=== PATIENT | male | born 1945 | race Caucasian/White ===

== ENCOUNTER 2017-06-24 09:13 | Outpatient (CLI) | payer OTHER ==
--- NOTE | 2017-06-24 11:01 | CT Report ---
CT SINUSES WITHOUT CONTRAST: 06/24/2017 CLINICAL INDICATION: Sinusitis. TECHNIQUE: Axial CT images of the paranasal sinuses were obtained without intravenous contrast, foll owing which sagittal and coronal reconstructions were performed. No previous CT is available for comparison. FINDINGS: There is near complete opacification of the left maxillary sinus, with bony reactive gallagher es, compatible with chronic sinusitis. The left osteomeatal unit is occluded by soft tissue, and the re is patchy opacification of left ethmoid air cells. There is mild mucosal thickening in the right maxillary sinus. The right osteomeatal unit is patent. There is rightward deviation of the septum. There is mild mucosal thickening in the inferior aspect of the frontal sinuses and sphenoid sinus. The visualized intraorbital contents are unremarkable. An exostosis is noted arising from the left s uperior orbital rim. IMPRESSION: CHRONIC SINUSITIS, MOST SEVERE IN THE LEFT MAXILLARY SINUS. In accordance with CT protocol optimization, one or more of the following dose reduction techniques w ere utilized for this exam: automated exposure control, adjustment of mA and/or KV based on patient size, or use of iterative reconstructive technique. JOB #: [id number] EXT JOB #:[id number]
== END 2017-06-24 09:14 | disposition home or self-care (01) ==
LOC: DI 09:13
PROVIDERS: ATTEND Hospitalist
DX: J32.9 Chronic sinusitis, unspecified (principal)
CPT/HCPCS: 70486

== ENCOUNTER 2017-11-14 07:09 | Observation (INO) | payer OTHER ==
[2017-11-14] MEDS ORDERED: LACTATED RINGERS 1,000 ML IV ONE ×2 (07:45→08:10)
[2017-11-14] MEDS ORDERED: MIDAZOLAM 2 MG/2 ML VIAL IVP ONE (07:55)
[2017-11-14] MEDS ORDERED: fentaNYL 100 MCG/2 ML VIAL IVP ONE (07:55)
[2017-11-14] MEDS ORDERED: diltiaZEM INJ 5 MG/ML VIAL ONE (09:13)
[2017-11-14 09:17] LABS: BASOPHILS # (AUTO) 0.1 10^3/uL (0.0-0.1); BASOPHILS % (AUTO) 0.6 %; EOSINOPHILS # (AUTO) 0.1 10^3/uL (0.0-0.7); EOSINOPHILS % (AUTO) 0.9 %; HGB - HEMOGLOBIN 13.4 g/dL (14.0-18.0); LYMPHOCYTES # (AUTO) 1.8 10^3/uL (1.5-3.5); LYMPHOCYTES % (AUTO) 20.6 %; MEAN CORPUSCULAR HEMOGLOBIN 31.8 pg (27.0-31.0); MEAN CORPUSCULAR VOLUME 90.8 fL (80.0-94.0); MEAN PLATELET VOLUME 8.1 fL (7.4-11.4); MONOCYTES # (AUTO) 0.4 10^3/uL (0.0-1.0); MONOCYTES % (AUTO) 4.4 %; NEUTROPHILS # (AUTO) 6.3 10^3/uL (1.5-6.6); NEUTROPHILS % (AUTO) 73.5 %; PLT - PLATELET COUNT 210 10^3/uL (130-450); RED BLOOD COUNT 4.22 10^6/uL (4.70-6.10); RED CELL DISTRIBUTION WIDTH 13.1 % (12.0-15.0); WHITE BLOOD COUNT 8.6 x10^3/uL (4.8-10.8)
[2017-11-14 09:26] LABS: CALCIUM 8.9 mg/dL (8.5-10.3); CREATININE 0.9 mg/dL (0.6-1.2)
[2017-11-14] MEDS ORDERED: PROCAINAMIDE 1,000 MG in SODIUM CHLORIDE 0.9% 240 ML IV SCH (10:00)
[2017-11-14] MEDS ORDERED: MORPHINE 2 MG/ML CARPUJECT IVP PRN (10:10)
[2017-11-14] MEDS ORDERED: ONDANSETRON ODT 4 MG TABLET TL PRN (10:10)
[2017-11-14] MEDS ORDERED: ACETAMINOPHEN 325 MG TABLET PO PRN (10:10)
[2017-11-14] MEDS ORDERED: ONDANSETRON 4 MG/2 ML VIAL IVP PRN (10:10)
[2017-11-14] MEDS ORDERED: HYDROcod/ACETAM 5/325 MG TABLET PO PRN (10:10)
[2017-11-14] MEDS ORDERED: SODIUM CHLORIDE FLUSH 0.9% 10 ML SYRINGE IVP PRN (10:10)
[2017-11-14] MEDS ORDERED: PROCHLORPERAZINE 10 MG/2 ML VIAL IVP PRN (10:10)
[2017-11-14] MEDS ORDERED: MAG HYDROX/AL HYDROX/SIMETH 30 ML UDC PO ONE (10:15)
[2017-11-14] MEDS ORDERED: PANTOPRAZOLE 40 MG VIAL IVP SCH (11:00)
[2017-11-14] MEDS ORDERED: SODIUM CHLORIDE 0.9% 1,000 ML IV SCH (11:00)
[2017-11-14] MEDS ORDERED: ENOXAPARIN 40 MG/0.4 ML SYRINGE SUBQ SCH (11:00)
[2017-11-14 11:26] LABS: HB2 TOTAL 14.4 g/dL; HEMOGLOBIN A1C 0.85 g/dL; HEMOGLOBIN A1C % 7.6 % (4.6-6.2)
--- NOTE | 2017-11-14 11:58 | HISTORY & PHYSICAL EXAMINATION ---
DATE OF SERVICE: Physician: Ml Garcia MD PRIMARY CARE PROVIDER: Jewels Aguero at [facility] ADMITTING PROVIDER: Ml Garcia MD CHIEF COMPLAINT: New onset atrial fibrillation as he was being sedated for an elective colonoscopy. HISTORY OF PRESENT ILLNESS: The patient has no past medical history with regards to cardiac status. He says that over the years, he has gotten less and less active. He loves to eat and he is way too overweight. He is a diabetic, hypertensive, hyperlipidemic, and an ex-smoker. His does note that he gets a little bit more short of breath coming up the stairs, and he seems more tired and falls asleep in the middle of the day. They also wonder if he has obstructive sleep apnea. This is his sixth colonoscopy. He has a history of tubular adenomas. Last one was done in 2011. He had an uneventful precolonoscopy prep. He came here this morning without any new problems. He specifically denies chest pain, palpitations, shortness of breath , pedal edema, or orthopnea. Right after he received the Versed and fentanyl, but before he actually had insertion of the scope, he was noted to have some tachycardia on the rhythm monitor. Close evaluation showed him to have atrial fibrillation in the 140s up to the 160s. Blood pressure was maintained. The procedure was aborted, and the patient was transferred to the outpatient suite. Dr. Estephania Bautista asked me to come see the patient in consult. After evaluating the patient and being with him in the outpatient suite for about an hour and a half, I have decided to go ahead and place him in observation. While he was in the outpatient suite, he received diltiazem 10 mg IV push and he did drop his heart rate to the 90s, and he has been started on a procainamide drip of which he has had half of it. I was attempting to use the [place] protocol to see if I could get him discharged to home from the outpatient suite. However, the patient has had some chest pain with this. He says it is substernal. Seems like indigestion and all he needs to do is belch and he would feel better, but it is not happening. It is nonradiating and he does have some diaphoresis. No jaw pain, no arm pain. Not short of breath. Not nauseated. The pain resolved on its own. As stated, he did already receive diltiazem IV push, and he is in the middle of a procainamide drip and his systolic pressure is 110. PAST MEDICAL HISTORY 1. Hypertension. 2. Hyperlipidemia. 3. Uncontrolled type 2 diabetes mellitus, with complications of neuropathy, not on long-term insulin. 4. Reflux disease. 5. History of tubular adenomas, status post 5 colonoscopies with today's colonoscopy aborted. ALLERGIES: NO KNOWN DRUG ALLERGIES. MEDICATIONS 1. Glipizide 5 mg once a day. 2. Lovastatin 40 mg in the evening. 3. Metformin 1000 mg b.i.d. 4. Lisinopril 20 mg p.o. daily. SOCIAL HISTORY: He was born in [place]. He is a local boy and he is very proud of it. Did go away in the [employer] to [place] and served over a year. Was exposed to Agent [place]. He is on 60% disability because of the experience and has 30% disability on the basis of PTSD. He has another 30% based on erectile dysfunction. He has had many, many jobs in his lifetime. 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 He was to his first for 27 years. She was severely alcoholic and the marriage ended unhappily. He is currently to his second of 13 years and they have been together for 14 years. He has 2 children with his first , one lives in [place] and one lives in [place]. He started smoking at the age of 18. Smoked up to 2 packs per day and quit approximately in 1982. He did drink quite a bit with his first marriage. He said that at first he would try to keep his company with her abuse. It took him a long time to realize that this was a problem. He himself also stopped drinking around 1982. He has no other history of recreational substance abuse. FAMILY HISTORY: Mom at age 86 and was healthy. Dad at age 97-1/2 and was healthy. Of 5 brothers, one of his brothers of a massive heart attack at the age of 65. His 2 older brothers and his 2 younger brothers all have diabetes. There is no heart disease, cancer, stroke, thyroid problems in his brothers. His 2 children are healthy. REVIEW OF SYSTEMS CONSTITUTIONAL: He denies any problems with sweats, fevers, unexpected weight changes. ENT: Occasional blurred vision depending on his sugar, but denies glaucoma or cataracts. Does have decreased hearing. No problems with swallowing. Denies allergic rhinitis symptoms. PULMONARY: Denies coughing, wheezing, chest congestion, hemoptysis or change in pulmonary status. He snores quite a bit. With his daytime somnolence and morbid obesity , I wonder if this patient has obstructive sleep apnea. CARDIOVASCULAR: As above. GASTROINTESTINAL: Reflux disease. Polyps. No recent change in bowel habits. No blood in the stool or urine. He has occasional epigastric discomfort, but not related to food. There has been no change in the color of his stools. No blood in his stools. GENITOURINARY: Complete erectile dysfunction. Some of his disability from the [employer] is based on that. He does have occasional hesitancy and increased frequency. Some slight decreased stream. Some nocturia. JOINTS: Unremarkable other than morning stiffness. SKIN: No new lesions, rashes, moles. PSYCHIATRIC: PTSD, 30% service connected for that. CENTRAL NERVOUS SYSTEM: Denies syncope, seizures, memory loss. Does have neuropathy. PHYSICAL EXAMINATION: The patient was examined 3 times in outpatient surgery. VITAL SIGNS: Blood pressure was consistently 110-130. Pulse was consistently atrial fibrillation and initially was in the 140s and has slowed down to below 100 when I leave him in outpatient surgery to be transferred to ICU. He is still in atrial fibrillation. O2 saturations have remained 97% to 100% on 2 liters nasal cannula. Temperature not documented. GENERAL: He is an exceedingly pleasant, moderately tall, white male who looks his stated age with a rotund belly from his weight. Very jovial personality. HEAD AND NECK: Unremarkable. Pupils are reactive. Sclerae are nonicteric. Oral mucosa is pink and moist. Neck is supple with no JVD, adenopathy, goiter or bruits. LUNGS: Clear to auscultation and percussion. HEART: PMI is normally placed with a fast irregular rate and rhythm. No murmurs, rubs or gallops. ABDOMEN: Rotund and distended with a large pannus. Difficult to assess for organomegaly. Normal bowel sounds. No rebound or guarding. EXTREMITIES: Warm. He has trace edema around the ankles. On the anterior part of his lower extremities, specifically over the shins, the skin is with streaks of brown and discoloration. He says that dates back to his younger days when he used to walk into everything and those are just healed cuts. NEUROLOGIC: He is alert and oriented to person, place and time. Can follow 2- step commands. Very lucid historian and has told multiple jokes and multiple stories. No tremors. No focal deficits. INITIAL LABORATORY ANALYSIS: Shows a normal CMP, normal CBC. Troponin less than 0.04. EKG has atrial fibrillation with RVR and no acute ST-T wave changes. ASSESSMENT/PLAN 1. Atrial fibrillation. Differential diagnosis would include angina, pulmonary embolus, thyroid, alcohol, electrolyte disturbance. At this time, none are present. I have attempted to cardiovert the patient in outpatient surgery, but with the episode of chest pain I think it prudent to go ahead and just bring him in for observation to control his rate or cardiovert. He is hemodynamically stable with this. Attestation: This patient will be admitted for less than 96 hours. At 96 hours, he will be evaluated for discharge or transfer. Plan is to place in observation in ICU. Rule out myocardial infarction with 2 more sets of cardiac enzymes. Echocardiogram. Check TSH. Complete procainamide drip under the [place] protocol. CT pulmonary angiogram has been considered by me but at this time I am holding off since he has been ambulatory, has no reason to have venous stasis, legs are normal, and he has not been hypoxic. 2. Uncontrolled type 2 diabetes mellitus, with complications of neuropathy. Not on long-term insulin. He describes having glucoses that are quite high in the morning in the mid 200's. By the rest of the day, he does fine and they drop below 200, but it is only the morning. Plan is to follow up with his primary care provider, Jewels Aguero. Start Lantus 10 units at night. Check A1c. Cover with sliding scale insulin before meals. Low carbohydrate diet while in hospital. He protests and wants a double cheeseburger. I told him to take that up with nutrition services and whoever wins that is where I am betting my money on. He also would like to attend our local Diabetes Education classes and I will request his PCP refer him to [facility]. The fax referral number is [phone]. 3. Hypertension. Not a problem at this time. Controlled. Resume usual medications of his SANDRINE inhibitor. 4. Hyperlipidemia. Resume his statin. 5. Possible obstructive sleep apnea. Again, follow up with his primary care provider Jewels Aguero who is at the [facility]. She will be getting a copy of this history and physical. I would recommend he be set up for sleep study for obstructive sleep apnea. [facility] also has a sleep lab is he wanted to do it locally: [address] [place] [address] 8:30 a.m. to 4:30 p.m. Saturday through (Closed noon to 1 p.m.) 6. Deep venous thrombosis prophylaxis will be HARJEET palm. CODE STATUS: FULL CODE. TD: 11/14/2017 11:56 [email or web address]
[2017-11-14] MEDS: INSULIN ASPART 300 UNIT/3 ML PEN SUBQ SCH ×2 (12:05→17:03)
[2017-11-14] MEDS ORDERED: SODIUM CHLORIDE FLUSH 0.9% 10 ML SYRINGE IVP SCH (17:00)
[2017-11-14 17:34] VITALS: BP 126/55
--- NOTE | 2017-11-14 17:47 | Discharge Plan ---
Discharge Plan Disposition: 01 Home, Self Care Condition: Good Diet: Diabetic Activity Restrictions: Activity as Tolerated Shower Restrictions: No Driving Restrictions: No Additional Instructions or Follow Up instructions: You had to be observed in the hospital for short amount of time after experiencing new onset arrhythmia as they were starting to do your colonoscopy. The arrhythmia is called atrial fibrillation. New onset atrial fibrillation can be associated with alcohol abuse, heart attack, thyroid disease, blood clot to the lungs, or valvular heart disease. In evaluating you, you do not have an alcohol problem. We did blood test to see if you are having a heart attack and you were not. You are an ambulatory person who is physically active and are not at risk for blood clots. We did an echocardiogram to see if your heart valves were working correctly and if the chambers of your heart were normal. The preliminary report shows that your ultrasound of the heart is completely normal. The treatment for this arrhythmia was Procan given as a IV bolus for 1 hour. You nicely converted and you had no further recurrence of your atrial fibrillation in the 6 hours you were here. The only other problem I noticed during your stay was that your serum glucose in relation to your diabetes was a little high. We did give you some Lantus while you were here. Please see your primary care provider about getting a Lantus injection, 10 units at night. I would also recommend that you see the diabetic education classes here at the hospital. You described having some daytime sleepiness and fatigue over the last few months. Your says you snore. You may have obstructive sleep apnea and should be evaluated with a referral to a sleep lab. Please have your primary care provider, Danish Diaz, make that referral. The only other referral you need in follow-up is for a stress test. Want to make sure that your heart arteries and muscle are working well and that you do not get a recurrence of your atrial fibrillation. Of course, and unfortunately, you will have to redo your colon prep for a rescheduled colonoscopy. Dr. Bautista prefers that you get all your other medical problems taken care of and THEN reschedule for the colonoscopy. Follow-Up Care: [facility] - Diabetes Ed No Smoking: If you smoke, Please STOP! Call for help. Follow-up with: DANISH DIAZ MD [Primary Care Provider] - JEREMY BAUTISTA MD [Provider Admit Priv/Credential] - Adela Chavez MD, [facility] [Provider Admit Priv/Credential] -
[2017-11-14] MEDS ORDERED: ATORVASTATIN 10 MG TABLET PO SCH (21:00)
[2017-11-14] MEDS ORDERED: INSULIN GLARGINE 300 UNIT/3 ML PEN SUBQ SCH (21:00)
[2017-11-15] MEDS ORDERED: glipiZIDE 5 MG TABLET PO SCH (09:00)
[2017-11-15] MEDS ORDERED: LISINOPRIL 20 MG TABLET PO SCH (09:00)
--- NOTE | 2017-11-15 13:47 | DISCHARGE SUMMARY ---
Physician: Ml Garcia MD DATE OF ADMISSION: 11/14/2017 DATE OF DISCHARGE: 11/14/2017 PRIMARY CARE PHYSICIAN: Jewels Aguero MD, at [facility], fax number is [phone]. DISCHARGE DIAGNOSES 1. New onset atrial fibrillation, resolved. 2. Chest pain with atrial fibrillation, rapid ventricular response. 3. Type 2 diabetes mellitus, uncontrolled, with complications of neuropathy and chronic kidney disease. 4. Essential hypertension. 5. Hyperlipidemia. 6. Probable obstructive sleep apnea. DISCHARGE MEDICATIONS Unchanged from admission medications and he is still on: 1. Aspirin. 2. Proscar. 3. Glipizide. 4. Lisinopril. 5. Lovastatin. 6. Metformin. 7. Flomax and unchanged from his admission. PRINCIPAL PROCEDURES Echocardiogram. Preliminary report. Final must be reviewed by primary care provider. He has left ventricular size that is normal, wall thickness normal. Ejection fraction 55% to 60%. No regional wall motion abnormality. Left atrial volume index was normal. He has mild aortic valve sclerosis with no stenosis. Mitral and tricuspid valves appear structurally normal. A1c is 7.6%. Troponins are less than 0.04 x2 sets. EKG initially showed atrial fibrillation with rapid ventricular response. The patient converted to sinus rhythm on telemetry. HOSPITAL COURSE: He was undergoing a colonoscopy today. He had done an uneventful prep. He was in the OR, getting Versed and fentanyl when he went into atrial fibrillation. I was asked to see the patient in outpatient surgery area. He was an alert, oriented, jovial gentleman; an exceedingly pleasant person to meet. He had atrial fibrillation with normotensive vitals, afebrile, and tolerating it well. He has never had any history of atrial fibrillation before. He has enough risk factors for heart disease. Using the [place] protocol, I gave him Cardizem 10 mg IV push, and he had a good response with heart rate down to the 90s. There was a delay in getting the procaine for half an hour, and heart rate started to climb back up again. He received procaine drip. Developed chest pain in the outpatient surgery area, and troponins were negative. Labs included a BMP which was normal other than the random glucose of 238, and a CBC that had a hemoglobin of 13.4, hematocrit 38.4, white cell count 8.6. Upon transfer to ICU, the procaine drip was completed and as the procaine drip completed, within a few moments at 11:08 in the morning, he converted to normal sinus rhythm. All vital signs normalized. He was in the 120s over 60s, comfortable. He did not have any further chest pain, other than an outpatient surgery before transfer to ICU. As such, we felt that the patient had a successful cardioversion using the [place] protocol. He was observed for further 6 hours and a second set of troponins, which were negative. The patient is strongly encouraged to follow up with his primary care provider for the followin. Probable outpatient stress test and a referral to Cardiology for an opinion. He does not need to be anticoagulated at this time. No rate control and no medications. 2. He describes daytime somnolence and increasing fatigue over the last several months. He is obese, snores mildly and have episodes of apnea witnessed by his . He needs an outpatient evaluation with a sleep study. 3. His A1c is 7.6%. He states that his morning glucoses are in the mid 200s on a regular basis, where as the rest of the day appears fine. He would benefit from diabetic education classes and has specifically requested to see the [facility] here at the hospital. I will pass that along to Dr. Aguero for her to make that referral to the [facility]. He is discharged in stable condition, walking in the hallways, and having eaten lunch and dinner. PHYSICAL EXAMINATION VITAL SIGNS: Temperature is 36.4, pulse of 78, blood pressure 126/55, respirations 18, and he is 95% on room air. GENERAL: He is a tall, moderately overweight, white male who looks his stated age at 72, with a BMI of 37.4. NEUROLOGIC: No facial asymmetry. Speech is normal. LUNGS: Clear. HEART: He has a regular rate and rhythm. ABDOMEN: Soft, nontender, benign. CARDIOVASCULAR: Telemetry confirms normal sinus rhythm. EXTREMITIES: No leg edema. He is asked to please also follow up to get a redo colonoscopy since this one had to be canceled. TD: 11/15/2017 04:46
--- NOTE | 2017-11-26 16:02 | POST OP PROGRESS NOTE ---
Subjective - General Admit Date: 11/14/17 Procedure Date: 11/14/17 Post Op Days: 12 - Other Other Information/Narrative: Patient scheduled for colonscopy, however, prior to the start of the procedure he developed new onset atrial fibrillation and the procedure was cancelled and a medical consultation obtained.
== END 2017-11-14 18:25 | disposition home or self-care (01) ==
LOC: SDS 07:09 → ICU 09:54
PROVIDERS: ADMIT Specialist; ATTEND Specialist
PROC: 0DJD8ZZ Inspection of Lower Intestinal Tract, Via Natural or Artificial Opening Endoscopic (ICD-10-PCS; principal; 2017-11-14 08:15)
DX: Z12.11 Encounter for screening for malignant neoplasm of colon (principal); I48.91 Unspecified atrial fibrillation; R07.2 Precordial pain; E11.40 Type 2 diabetes mellitus with diabetic neuropathy, unspecified; E11.22 Type 2 diabetes mellitus with diabetic chronic kidney disease; N18.9 Chronic kidney disease, unspecified; I10 Essential (primary) hypertension; E78.5 Hyperlipidemia, unspecified; R06.83 Snoring; E66.01 Morbid (severe) obesity due to excess calories; K21.9 Gastro-esophageal reflux disease without esophagitis; Z86.010 Personal history of colon polyps; Z87.891 Personal history of nicotine dependence; Z79.84 Long term (current) use of oral hypoglycemic drugs; Z68.37 Body mass index [BMI] 37.0-37.9, adult; Z79.82 Long term (current) use of aspirin; Z77.098 Contact with and (suspected) exposure to other hazardous, chiefly nonmedicinal, chemicals
CPT/HCPCS: 36415; 45378; 80048; 83036; 84484; 85025; 87150; 93005; 93306; 96361; 96365; 96372; 96375; A9270; G0378; J1650; J2690; J7120; 80053

== ENCOUNTER 2017-12-23 09:55 | Outpatient (CLI) | payer OTHER | END 2017-12-23 09:56 | disposition home or self-care (01) | LOC: SC 09:55 | PROVIDERS: ATTEND Internal Medicine Pulmonary Disease | DX: G47.30 Sleep apnea, unspecified (principal); G47.10 Hypersomnia, unspecified; G47.8 Other sleep disorders; R06.83 Snoring | CPT/HCPCS: 99203; 99212 ==

== ENCOUNTER 2018-02-15 19:51 | Outpatient (CLI) | payer OTHER | END 2018-02-15 19:52 | disposition home or self-care (01) | LOC: SC 19:51 | PROVIDERS: ATTEND Internal Medicine Pulmonary Disease | DX: G47.33 Obstructive sleep apnea (adult) (pediatric) (principal); G47.61 Periodic limb movement disorder | CPT/HCPCS: 95810 ==

== ENCOUNTER 2018-04-14 14:11 | Outpatient (CLI) | payer OTHER | END 2018-04-14 14:12 | disposition home or self-care (01) | LOC: SC 14:11 | PROVIDERS: ATTEND Internal Medicine Pulmonary Disease | DX: G47.33 Obstructive sleep apnea (adult) (pediatric) (principal) | CPT/HCPCS: 99212; 99213 ==

== ENCOUNTER 2018-10-27 07:43 | Day surgery (SDC) | payer OTHER ==
[2018-10-27] MEDS ORDERED: LACTATED RINGERS 1,000 ML IV ONE (08:22)
[2018-10-27] MEDS ORDERED: fentaNYL 250 MCG/5 ML VIAL IVP ONE (09:00)
[2018-10-27] MEDS ORDERED: MIDAZOLAM 2 MG/2 ML VIAL IVP ONE (09:00)
[2018-10-27 09:54] VITALS: BP 129/76
== END 2018-10-27 07:44 | disposition home or self-care (01) ==
LOC: SDS 07:43
PROVIDERS: ATTEND Surgery
PROC: 0DBK8ZZ Excision of Ascending Colon, Via Natural or Artificial Opening Endoscopic (ICD-10-PCS; principal; 2018-10-27 09:00)
DX: Z12.11 Encounter for screening for malignant neoplasm of colon (principal); D12.2 Benign neoplasm of ascending colon; K64.8 Other hemorrhoids; I10 Essential (primary) hypertension; E11.9 Type 2 diabetes mellitus without complications; I48.91 Unspecified atrial fibrillation; G47.30 Sleep apnea, unspecified; E66.9 Obesity, unspecified; Z87.891 Personal history of nicotine dependence; Z68.43 Body mass index [BMI] 50.0-59.9, adult; Z79.84 Long term (current) use of oral hypoglycemic drugs; Z79.899 Other long term (current) drug therapy; Z80.42 Family history of malignant neoplasm of prostate; Z86.010 Personal history of colon polyps
CPT/HCPCS: 45380; J3010; J7120

== ENCOUNTER 2020-07-04 13:26 | Inpatient (IN) | payer OTHER ==
--- NOTE | 2020-07-04 13:57 | ED Physician Documentation ---
PD HPI DYSPNEA - Stated complaint Stated Complaint: CHEST PAIN - Chief complaint Chief Complaint: Cardiac - History obtained from History obtained from: Patient, Family - History of Present Illness Timing - onset: How many days ago (10) Timing - onset during: Light activity Timing - duration: Days (10) Timing - details: Gradual onset, Still present Inciting event(s): URI Improved by: Rest, Sitting up Worsened by: Exertion, Laying flat, Coughing Associated symptoms: Cough, Bilateral edema. No: Fever, Hemoptysis, Wheezing, Chest pain / discomfort, Palpitations, Diaphoresis Similar symptoms before: Has not had sx before Recently seen: Not recently seen - Additional information Additional information: 74-year-old male with a history of hypertension diabetes and intermittent atrial fibrillation who is on CPAP has developed increasing shortness of breath over the past 10 days. He has shortness of breath at rest his shortness of breath when he is laying flat. The symptoms have increased over the past 10 days. He has noted swelling to his legs as well. He does not have a history of CHF. He has history of afib and has one admission overnight after an episode of afib while on the colonoscopy table. Review of Systems Constitutional: denies: Fever Eyes: denies: Decreased vision Ears: denies: Ear pain Nose: denies: Congestion Throat: denies: Sore throat Cardiac: reports: Pedal edema. denies: Chest pain / pressure, Palpitations, Calf pain Respiratory: reports: Dyspnea, Cough GI: denies: Abdominal Pain, Nausea, Vomiting : denies: Dysuria, Frequency Skin: denies: Rash Musculoskeletal: reports: Extremity swelling. denies: Neck pain, Back pain, Extremity pain Neurologic: denies: Generalized weakness, Focal weakness, Numbness PD PAST MEDICAL HISTORY - Past Medical History Past Medical History: Yes Cardiovascular: Hypertension, High cholesterol Respiratory: None Endocrine/Autoimmune: Type 2 diabetes GI: GERD Psych: None Musculoskeletal: Osteoarthritis, Chronic back pain - Past Surgical History Past Surgical History: Yes General: Colonoscopy - Present Medications Home Medications: Ambulatory Orders Medication Instructions Recorded Confirmed Aspirin Chewable [[place] 81 mg PO DAILY 11/14/17 11/14/17 Aspirin] Finasteride [Proscar] 5 mg PO 209911/14/17 11/14/17 Glipizide 5 mg PO DAILY 11/14/17 11/14/17 Lovastatin 40 mg PO 2100 11/14/17 11/14/17 Metformin HCl 1,000 mg PO BID 11/14/17 11/14/17 Tamsulosin [Flomax] 0.4 mg PO DAILY 11/14/17 11/14/17 lisinopriL [Lisinopril] 20 mg PO DAILY 11/14/17 11/14/17 Pioglitazone HCl [Actos] 30 mg PO DAILY 10/24/18 10/24/18 Pravastatin Sodium 20 mg PO DAILY 10/24/18 10/24/18 - Allergies Allergies/Adverse Reactions: Allergies Allergy/AdvReac Type Severity Reaction Status Date / Time No Known Drug Allergies Allergy Verified 07/04/20 13:35 - Social History Does the pt smoke?: Yes Smoking Status: Former smoker Does the pt drink ETOH?: No Does the pt have substance abuse?: No - Immunizations Immunizations are current?: No PD ED PE NORMAL - Vitals Vital signs reviewed: Yes (tachy and hypertensive ) - General General: Alert and oriented X 3, Well developed/nourished, Other (mild tachypnia at rest) - HEENT HEENT: Atraumatic, PERRL, EOMI - Neck Neck: Supple, no meningeal sign - Cardiac Cardiac: No murmur, Other (irregularly irregular without murmer) - Respiratory Respiratory: Other (tachypneic with diminished breath sounds. ) - Abdomen Abdomen: Normal bowel sounds, Soft, Non tender, No organomegaly - Back Back: No CVA TTP, No spinal TTP - Derm Derm: Normal color, Warm and dry, No rash - Extremities Extremities: No deformity, Other (pitting edema bilaterally worse on the left ) - Neuro Neuro: Alert and oriented X 3, missile pad mechanic 2-12 intact, No motor deficit, No sensory deficit, Normal speech Eye Opening: Spontaneous Motor: Obeys Commands Verbal: Oriented GCS Score: 15 - Psych Psych: Normal mood, Normal affect Results - Vitals Vitals: Vital Signs - 24 hr 07/04/20 07/04/20 07/04/20 13:31 13:53 14:05 Temperature 36 C L Heart Rate 130 H 126 H 96 Respiratory 20 20 20 Rate Blood Pressure 155/111 H 158/118 H 143/89 H O2 Saturation 96 96 94 07/04/20 07/04/20 14:30 15:00 Temperature Heart Rate 120 H 124 H Respiratory 20 18 Rate Blood Pressure 160/100 H 150/100 H O2 Saturation 94 97 Oxygen O2 Source Room air - EKG (time done) 1332 Rate: Rate (enter#) (130) Rhythm: Atrial fibrillation Intervals: Prolonged QT (borderline) Ischemia: Normal ST segments Compare to prior EKG: Changed from prior EKG (SPT 11-24-2017 borderline prolonged QT has occurred. ) Computer interpretation: Agree with computer - Labs Labs: Laboratory Tests 07/04/20 07/04/20 07/04/20 13:42 13:42 13:42 WBC 7.9 RBC 4.09 L Hgb 13.0 L Hct 38.1 L MCV 93.2 MCH 31.8 H MCHC 34.1 RDW 14.6 Plt Count 202 MPV 10.5 Neut # (Auto) 5.4 Lymph # (Auto) 1.7 [place] # (Auto) 0.5 Eos # (Auto) 0.2 Baso # (Auto) 0.0 Absolute Nucleated RBC 0.00 Nucleated RBC % 0.0 Sodium 140 Potassium 3.6 Chloride 101 Carbon Dioxide 26 Anion Gap 13.0 BUN 15 Creatinine 0.9 Estimated GFR (MDRD) 82 L Glucose 172 H Calcium 9.2 Total Bilirubin 0.8 AST 21 ALT 23 Alkaline Phosphatase 66 Troponin I High Sens 10.9 B-Natriuretic Peptide Total Protein 7.6 Albumin 3.5 Globulin 4.1 Albumin/Globulin Ratio 0.9 L Lipase 30 Urine Color Urine Clarity Urine pH Ur Specific [place] Urine Protein Urine Glucose (UA) Urine Ketones Urine Occult Blood Urine Nitrite Urine Bilirubin Urine Urobilinogen Ur Leukocyte Esterase Urine RBC Urine WBC Ur Squamous Epith Cells Urine Bacteria Ur Microscopic Review Urine Culture Comments 07/04/20 07/04/20 13:42 15:00 WBC RBC Hgb Hct MCV MCH MCHC RDW Plt Count MPV Neut # (Auto) Lymph # (Auto) [place] # (Auto) Eos # (Auto) Baso # (Auto) Absolute Nucleated RBC Nucleated RBC % Sodium Potassium Chloride Carbon Dioxide Anion Gap BUN Creatinine Estimated GFR (MDRD) Glucose Calcium Total Bilirubin AST ALT Alkaline Phosphatase Troponin I High Sens B-Natriuretic Peptide 172 H Total Protein Albumin Globulin Albumin/Globulin Ratio Lipase Urine Color YELLOW Urine Clarity CLEAR Urine pH 6.0 Ur Specific [place] 1.025 Urine Protein 30 H Urine Glucose (UA) NEGATIVE Urine Ketones NEGATIVE Urine Occult Blood NEGATIVE Urine Nitrite NEGATIVE Urine Bilirubin NEGATIVE Urine Urobilinogen 1 (NORMAL) Ur Leukocyte Esterase NEGATIVE Urine RBC 0-5 Urine WBC 0-3 Ur Squamous Epith Cells FEW Squamous Urine Bacteria Rare Ur Microscopic Review INDICATED Urine Culture Comments NOT INDICATED - Rads (name of study) chest Radiology: Prelim report reviewed (impression: suspect fluid overload/CHF and bilateral pleural effusions with compressive atelectasis. ), EMP read indepedently, See rad report Procedures - IVC sono (time) 1420 Bedside IVC sono: IVC measures (cm) (2.76), IVC collapsed c insp (cm) (2.26), High CVP, Fluid overload PD MEDICAL DECISION MAKING - ED course Complexity details: reviewed old records, reviewed results, re-evaluated patient, considered differential, d/w patient, d/w family ED course: 74 y/o male with a history of afib intermittent has developed increasing exertional dyspnea with afib with RVR. He is in CHF with a rate in the 130's. He is administered IV diltiazem with improvement in rate and he is subsequently administered IV lasix. Dr. Baird is consulted in the case and will place the patient in observation for care in the hospital for the new problem of CHF. Departure - Departure Disposition: 66 [facility] DC/Xfer Clinical Impression: Atrial fibrillation with RVR Congestive heart failure Qualifiers: Heart failure type: unspecified Heart failure chronicity: acute Qualified Code(s): I50.9 - Heart failure, unspecified Condition: Stable
[2020-07-04] MEDS ORDERED: diltiaZEM INJ 5 MG/ML VIAL IVP STA ×2 (13:58→15:22)
[2020-07-04 14:00] LABS: BASOPHILS % (AUTO) 0.4 %; EOSINOPHILS # (AUTO) 0.2 10^3/uL (0.0-0.7); EOSINOPHILS % (AUTO) 2.2 %; LYMPHOCYTES # (AUTO) 1.7 10^3/uL (1.5-3.5); LYMPHOCYTES % (AUTO) 22.1 %; MEAN CORPUSCULAR HEMOGLOBIN 31.8 pg (27.0-31.0); MEAN CORPUSCULAR HGB CONC 34.1 g/dL (32.0-36.0); MEAN CORPUSCULAR VOLUME 93.2 fL (80.0-94.0); MEAN PLATELET VOLUME 10.5 fL (7.4-11.4); MONOCYTES # (AUTO) 0.5 10^3/uL (0.0-1.0); MONOCYTES % (AUTO) 5.8 %; NEUTROPHILS # (AUTO) 5.4 10^3/uL (1.5-6.6); NEUTROPHILS % (AUTO) 69.1 %; PLT - PLATELET COUNT 202 10^3/uL (130-450); RED BLOOD COUNT 4.09 10^6/uL (4.70-6.10); RED CELL DISTRIBUTION WIDTH 14.6 % (12.0-15.0); WHITE BLOOD COUNT 7.9 x10^3/uL (4.8-10.8)
[2020-07-04 14:10] LABS: ALBUMIN 3.5 g/dL (3.2-5.5); ALBUMIN/GLOBULIN RATIO 0.9 (1.0-2.2); BILIRUBIN,TOTAL 0.8 mg/dL (0.2-1.0); CALCIUM 9.2 mg/dL (8.5-10.3); CREATININE 0.9 mg/dL (0.6-1.2); TOTAL PROTEIN 7.6 g/dL (6.7-8.2)
[2020-07-04] MEDS ORDERED: FUROSEMIDE 40 MG/4 ML VIAL IVP STA (14:24)
[2020-07-04 15:14] LABS: BILIRUBIN,URINE NEGATIVE (NEGATIVE); GLUCOSE, URINE (UA) NEGATIVE (NEGATIVE); KETONES,URINE (UA) NEGATIVE (NEGATIVE); LEUKOCYTE ESTERASE, URINE NEGATIVE (NEGATIVE); NITRITE,URINE NEGATIVE (NEGATIVE); OCCULT BLOOD,URINE NEGATIVE (NEGATIVE); PROTEIN,URINE 30 mg/dL (NEGATIVE); UROBILINOGEN,URINE 1 (NORMAL) E.U./dL (NORMAL)
[2020-07-04 15:17] LABS: CLARITY,URINE CLEAR (CLEAR)
[2020-07-04] MEDS ORDERED: ONDANSETRON 4 MG/2 ML VIAL IVP PRN (15:18)
[2020-07-04] MEDS ORDERED: ACETAMINOPHEN 325 MG TABLET PO PRN (15:18)
[2020-07-04 15:28] LABS: BACTERIA,URINE Rare /HPF (None Seen); RBC,URINE 0-5 /HPF (0-5); SQUAMOUS EPITHELIAL CELL,UR FEW Squamous (<= Few)
--- NOTE | 2020-07-04 16:04 | PHARMACY PROGRESS NOTE ---
- Best Possible Medication History Admit Date and Time: 07/04/20 1517 Processed by: Pharmacy Medication History completed: Yes Patient Interview: Completed Secondary Source(s): Physician records (PATIENT INTERVIEWED BY AREA SALES MANAGER WHILE IN ED. ROSALBA ABLE TO CONFIRM HOME MEDICATIONS ), Pharmacy records, Insurance records As the person ultimately responsible for medication therapy, providers are able to order a medication from an existing home medication list in [facility] via the "Reconcile Routine" prior to Confirmation of that medication by desktop support technician. Such practice is discouraged except when the physician, in their clinical ju dgment, deems that a medical need exists for a medication without regard to previous use.
--- NOTE | 2020-07-04 16:38 | XRAY Report ---
PROCEDURE: Chest 2 View X-Ray INDICATIONS: New CHF TECHNIQUE: 2 view(s) of the chest. COMPARISON: Chest x-ray, 07/04/2020 at 1219 hours. FINDINGS: Surgical changes and devices: None. Lungs and pleura: Bilateral interstitial infiltrates consistent with pulmonary edema. Small pleural e ffusions bilaterally. Bibasilar consolidations or atelectasis. No pneumothorax. Mediastinum: Mediastinal contours are normal. Heart size is normal. Bones and chest wall: No suspicious bony abnormalities. Soft tissues appear unremarkable. IMPRESSION: 1. Bilateral perihilar infiltrates and small pleural effusions consistent with mild CHF. 2. Bibasilar consolidations or atelectasis. Superimposed pneumonia cannot be excluded. Reviewed by: Tish Lantigua MD on 07/04/2020 4:37 PM PDT Approved by: Tish Lantigua MD on 07/04/2020 4:37 PM PDT Station ID: [id number]
[2020-07-04] MEDS ORDERED: AZITHROMYCIN 250 MG TABLET PO STA (17:23)
[2020-07-04] MEDS: cefTRIAXone 2 GM in SODIUM CHLORIDE 0.9% MINIBAG 100 ML IV SCH (18:03)
[2020-07-04] MEDS ORDERED: SODIUM CHLORIDE FLUSH 0.9% 10 ML SYRINGE IVP PRN (18:35)
[2020-07-04] MEDS: diltiaZEM INJ 125 MG in DEXTROSE 5% 100 ML IV SCH (18:35)
[2020-07-04 19:08] LABS: INR 1.3 (0.8-1.2); PT - PROTHROMBIN TIME 13.9 secs (9.9-12.6)
--- NOTE | 2020-07-04 19:09 | HISTORY & PHYSICAL EXAMINATION ---
DATE OF SERVICE: 07/04/2020 Physician: Mercy Mckenzie MD HISTORY OF PRESENT ILLNESS: This is a 74-year-old white male who goes to the [facility] for his care, has a history of paroxysmal atrial fibrillation that was found while he was undergoing a colonoscopy several years ago and then he was placed in observation here for that. An echo was normal, troponins were normal, he converted to sinus rhythm. There was description of him having snoring and he was advised to undergo study for sleep apnea. Subsequently, he has been diagnosed with sleep apnea and uses a CPAP. By record the atrial fibrillation is intermittent. He also has a history of hypertension, elevated cholesterol, type 2 diabetes, GERD and osteoarthritis with back pain. The patient presented to an urgent care center today describing about 10 days of slowly worsening shortness of breath with exertion and then orthopnea and resting shortness of breath. In the emergency room, he was found to have atrial fibrillation with rapid ventricular response with a heart rate of 130. He was given diltiazem 20 mg IV x1 and this decreased to a heart rate of 90. He also had clinical findings for CHF by exam and with a mildly elevated BNP of 175. He was advised admission for managing his atrial fibrillation with rapid ventricular response and new CHF. Of note is that he did not have a chest x-ray ordered or done when he was in the emergency room. It was done as he was being admitted to medical/surgical Inpatient status. PAST MEDICAL HISTORY: Diabetes, sleep apnea, hypertension, hyperlipidemia, GERD, DJD with back pain. ALLERGIES: NONE. MEDICATIONS 1. Glipizide 5 mg daily. 2. Lisinopril 40 mg daily. 3. Lovastatin 40 mg at night. 4. Metformin 1000 mg b.i.d. 5. Actos 30 mg daily. 6. Flomax 0.4 mg daily. 7. Baby aspirin daily. 8. Finasteride 5 mg every night. FAMILY HISTORY: No inherited diseases. SOCIAL HISTORY: Patient is a nonsmoker, drinks rare alcohol. No illicit drug use. 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 He is in mild respiratory distress at rest. VITAL SIGNS: Blood pressure 139/60, heart rate 120-130 in atrial fibrillation, afebrile, room air saturation 94%. HEENT: Unremarkable. NECK: Shows no JVD in a vertical position. CHEST: Diminished breath sounds HEART: Tachycardic. ABDOMEN: Soft, obese, nontender. EXTREMITIES: No clubbing, cyanosis or edema. LABORATORY DATA: Normal electrolytes. Normal BUN and creatinine. Glucose 172. Normal liver tests and bilirubin and alkaline phosphatase. Troponin high sensitivity normal at 10.9. BNP 172. Normal lipase. White blood count 7.9, hemoglobin 13, platelet count normal at 202. No INR was done. Urinalysis showed protein present. IMAGING: Chest x-ray, which was done after the ER showed bilateral perihilar infiltrates and small pleural effusions bilaterally and bibasilar consolidation, therefore, pneumonia could not be excluded and mild CHF was the impression as well. Heart size normal. EKG: Atrial fibrillation with rapid rate of 130, poor R-wave progression, nonspecific diffuse ST-T changes. IMPRESSION/DIAGNOSES 1. Shortness of breath. 2. Atrial fibrillation with rapid ventricular response. 3. Congestive heart failure on chest x-ray. 4. Community-acquired pneumonia. 5. Diabetes. 6. Hypertension. 7. Benign prostatic hypertrophy. 8. Sleep apnea, on CPAP. PLAN: Patient was admitted to medical/surgical inpatient status on telemetry. Following the findings on the chest x-ray returning and with heart rate continued to be poorly controlled, he will be transferred to the ICU for diltiazem drip to manage rapid rate. Start IV b.i.d. diuretics. Follow his daily weights, I's and O's, electrolytes and daily magnesium level. Obtain an echo. Recheck troponin level. Follow his BNP daily. Obtain a TSH level to rule out hypothyroidism as the cause of the rapid ventricular response. Obtain an echo to evaluate LV and RV contractility. Following this, his CHADS score will be calculated to determine if he mshould continue aspirin or require starting anticoagulation. Obtain a COVID swab and begin infection isolation. Start empiric antibiotics for community-acquired pneumonia using IV ceftriaxone and oral Zithromax. Oral dose is being ordered this way to decrease fluid input for him since he needs diuresis. Obtain a sputum culture and blood cultures, await results to tailor antibiotics. Maintain O2 saturations greater than 90% if supplemental oxygen is needed. Order a carb-controlled diet, fingerstick checks, sliding scale insulin coverage. Continue his home CPAP device use here. DEEP VENOUS THROMBOSIS PROPHYLAXIS: SCDS. CODE STATUS: FULL CODE. ATTESTATION: Patient is expected to be discharged or transferred to another facility within 96 hours: Yes. cc: , TD: 07/04/2020 18:38 TRINA
[2020-07-04] MEDS: SODIUM CHLORIDE FLUSH 0.9% 10 ML SYRINGE IVP SCH (19:14)
[2020-07-04] MEDS: FAMOTIDINE 20 MG TABLET PO SCH (20:39)
[2020-07-04] MEDS: FINASTERIDE 5 MG TABLET PO SCH (20:39)
[2020-07-04] MEDS: TEMAZEPAM 15 MG CAPSULE PO PRN (22:15)
[2020-07-05] MEDS: SODIUM CHLORIDE FLUSH 0.9% 10 ML SYRINGE IVP SCH ×5 (02:39→22:22)
[2020-07-05 04:36] LABS: BASOPHILS % (AUTO) 0.7 %; EOSINOPHILS # (AUTO) 0.2 10^3/uL (0.0-0.7); EOSINOPHILS % (AUTO) 3.3 %; HGB - HEMOGLOBIN 11.7 g/dL (14.0-18.0); LYMPHOCYTES # (AUTO) 1.7 10^3/uL (1.5-3.5); LYMPHOCYTES % (AUTO) 29.9 %; MEAN CORPUSCULAR HEMOGLOBIN 31.6 pg (27.0-31.0); MEAN CORPUSCULAR HGB CONC 33.4 g/dL (32.0-36.0); MEAN CORPUSCULAR VOLUME 94.6 fL (80.0-94.0); MEAN PLATELET VOLUME 10.7 fL (7.4-11.4); MONOCYTES # (AUTO) 0.5 10^3/uL (0.0-1.0); MONOCYTES % (AUTO) 8.3 %; NEUTROPHILS # (AUTO) 3.3 10^3/uL (1.5-6.6); NEUTROPHILS % (AUTO) 57.4 %; PLT - PLATELET COUNT 186 10^3/uL (130-450); RED CELL DISTRIBUTION WIDTH 14.7 % (12.0-15.0); WHITE BLOOD COUNT 5.7 x10^3/uL (4.8-10.8)
[2020-07-05 04:49] LABS: CALCIUM 8.7 mg/dL (8.5-10.3); CREATININE 0.8 mg/dL (0.6-1.2); MAGNESIUM 1.7 mg/dL (1.7-2.8)
[2020-07-05] MEDS: SODIUM CHLORIDE FLUSH 0.9% 10 ML SYRINGE IVP PRN ×2 (06:35→13:40)
[2020-07-05] MEDS: FUROSEMIDE 20 MG/2 ML VIAL IVP SCH ×2 (06:35→13:38)
[2020-07-05] MEDS: diltiaZEM INJ 125 MG in DEXTROSE 5% 100 ML IV SCH (06:36)
[2020-07-05] MEDS ORDERED: POTASSIUM CHLORIDE 20 MEQ TABLET PO ONE (07:00)
[2020-07-05] MEDS: ASPIRIN CHEW 81 MG TABLET PO SCH (08:49)
[2020-07-05] MEDS: METOPROLOL TARTRATE 50 MG TABLET PO SCH ×2 (08:50→20:26)
[2020-07-05] MEDS: FAMOTIDINE 20 MG TABLET PO SCH (08:51)
[2020-07-05] MEDS: AZITHROMYCIN 250 MG TABLET PO SCH (08:51)
[2020-07-05] MEDS: cefTRIAXone 2 GM in SODIUM CHLORIDE 0.9% MINIBAG 100 ML IV SCH (08:51)
[2020-07-05] MEDS: INSULIN ASPART 300 UNIT/3 ML PEN SUBQ SCH ×4 (09:47→20:35)
[2020-07-05] MEDS: INSULIN GLARGINE 300 UNIT/3 ML PEN SUBQ SCH (09:48)
[2020-07-05] MEDS: TAMSULOSIN 0.4 MG CAPSULE PO SCH (10:28)
[2020-07-05] MEDS: lisinopriL 20 MG TABLET PO SCH (10:28)
--- NOTE | 2020-07-05 10:38 | PROVIDER PROGRESS NOTE ---
Subjective - Prog Note Date Prog Note Date: 07/05/20 - Subjective Subjective: Still feels short of breath especially when lying down. Denies any palpitations or chest pain. Current Medications - Current Medications Current Medications: Active Medications Acetaminophen (Tylenol) 650 mg PO Q4HR PRN PRN Reason: Pain 1 to 4 Aspirin ([place] Aspirin) 81 mg PO DAILY [facility] Last Admin: 07/05/20 08:49 Dose: 81 mg Documented by: Atorvastatin Calcium (Lipitor) 20 mg PO QPM [facility] Azithromycin (Zithromax) 250 mg PO DAILY [facility] Stop: 07/09/20 00:00 Last Admin: 07/05/20 08:51 Dose: 250 mg Documented by: Famotidine (Pepcid) 20 mg PO BID [facility] Last Admin: 07/05/20 08:51 Dose: 20 mg Documented by: Finasteride (Proscar) 5 mg PO 2100 [facility] Last Admin: 07/04/20 20:39 Dose: 5 mg Documented by: Furosemide (Lasix Inj 20mg Vial) 20 mg IVP BIDDIURETIC [facility] Last Admin: 07/05/20 13:38 Dose: 20 mg Documented by: Ceftriaxone Sodium 2 gm/ (Sodium Chloride) 100 mls @ 200 mls/hr IV DAILY [facility] Last Infusion: 07/05/20 09:30 Dose: Infused Documented by: Diltiazem HCl 125 mg/ Dextrose 125 mls @ 5 mls/hr IV .Q25H [facility]; Protocol Last Titration: 07/05/20 10:04 Dose: 0 mg/hr, 0 mls/hr Documented by: Insulin Aspart (Novolog) 1 - 9 unit SUBQ 0800,1200,1700,2100 [facility]; Protocol Last Admin: 07/05/20 12:00 Dose: 5 unit Documented by: Insulin Glargine (Lantus Solostar) 10 unit SUBQ QDBREAKFAST [facility] Last Admin: 07/05/20 09:48 Dose: 10 unit Documented by: Lisinopril (Zestril) 40 mg PO DAILY [facility] Last Admin: 07/05/20 10:28 Dose: 40 mg Documented by: Metoprolol Tartrate (Lopressor) 50 mg PO BID [facility] Last Admin: 07/05/20 08:50 Dose: 50 mg Documented by: Ondansetron HCl (Zofran Inj) 4 mg IVP Q6HR PRN PRN Reason: Nausea / Vomiting Sodium Chloride (Normal Saline Flush 0.9%) 10 ml IVP PRN PRN PRN Reason: NEEDED PER PROVIDER ORDERS Last Admin: 07/05/20 13:40 Dose: 10 ml Documented by: Sodium Chloride (Normal Saline Flush 0.9%) 10 ml IVP 0100,0900,1700 [facility] Last Admin: 07/05/20 09:23 Dose: Not Given Documented by: Sodium Chloride (Normal Saline Flush 0.9%) 10 ml IVP 0100,0900,1700 [facility] Last Admin: 07/05/20 09:22 Dose: Not Given Documented by: Sodium Chloride (Normal Saline Flush 0.9%) 10 ml IVP PRN PRN PRN Reason: NEEDED PER PROVIDER ORDERS Tamsulosin HCl (Flomax) 0.4 mg PO DAILY [facility] Last Admin: 07/05/20 10:28 Dose: 0.4 mg Documented by: Temazepam (Restoril) 15 mg PO QPM PRN PRN Reason: Insomnia Last Admin: 07/04/20 22:15 Dose: 15 mg Documented by: Aspirin Chewable [[facility]aji Aspirin] 81 mg PO DAILY 11/14/17 Finasteride [Proscar] 5 mg PO 209911/14/17 Glipizide 5 mg PO DAILY 11/14/17 Lovastatin 40 mg PO 209911/14/17 Metformin HCl 1,000 mg PO BID 11/14/17 Tamsulosin [Flomax] 0.4 mg PO DAILY 11/14/17 lisinopriL [Lisinopril] 40 mg PO DAILY 11/14/17 Pioglitazone HCl [Actos] 30 mg PO DAILY 10/24/18 Objective - Vital Signs/Intake & Output Reviewed Vital Signs: Yes Vital Signs: Vital Signs Temp Pulse Resp BP BP Pulse Ox 07/05/20 10:00 70 20 130/87 H 96 07/05/20 09:00 88 21 130/89 H 93 07/05/20 08:50 138/108 H 07/05/20 08:00 36.9 C 96 19 152/92 H 93 07/05/20 07:00 103 H 23 145/96 H 94 Intake & Output: Intake & Output 07/02/20 07/03/20 07/04/20 07/05/20 23:59 23:59 23:59 23:59 Intake Total 407.037 978.833 Output Total 6595 7080 Balance -717.963 -501.167 - Objective General Appearance: positive: No acute distress, Alert Eyes Bilateral: positive: Normal inspection, Conjunctivae nml ENT: positive: ENT inspection nml Neck: positive: Nml inspection Respiratory: positive: No respiratory distress. negative: Wheezes, Rales Cardiovascular: positive: Irregularly irregular. negative: Tachycardia, Bradycardia, Systolic murmur Abdomen: positive: Non-tender, No distention. negative: Tenderness Skin: positive: Dry Extremities: positive: Pedal edema (+1 pitting edema in bilateral lower extremities at the ankles.) Neurologic/Psychiatric: positive: Oriented x3, Motor nml. negative: Disoriented to person, Disoriented to place, Disoriented to time - Lab Results Fish Bones: 07/05/20 04:30 07/05/20 04:30 Other Labs: Lab Results x24hrs 07/05/20 07/05/20 07/05/20 Range/Units 08:08 04:30 04:30 WBC (4.8-10.8) x10^3/uL RBC (4.70-6.10) 10^6/uL Hgb (14.0-18.0) g/dL Hct (42.0-52.0) % MCV (80.0-94.0) fL MCH (27.0-31.0) pg MCHC (32.0-36.0) g/dL RDW (12.0-15.0) % Plt Count (130-450) 10^3/uL MPV (7.4-11.4) fL Neut # (Auto) (1.5-6.6) 10^3/uL Lymph # (Auto) (1.5-3.5) 10^3/uL [place] # (Auto) (0.0-1.0) 10^3/uL Eos # (Auto) (0.0-0.7) 10^3/uL Baso # (Auto) (0.0-0.1) 10^3/uL Absolute Nucleated RBC x10^3/uL Nucleated RBC % /100WBC PT (9.9-12.6) secs INR (0.8-1.2) Sodium (135-145) mmol/L Potassium (3.5-5.0) mmol/L Chloride (101-111) mmol/L Carbon Dioxide (21-32) mmol/L Anion Gap (6-13) BUN (6-20) mg/dL Creatinine (0.6-1.2) mg/dL Estimated GFR (MDRD) (>89) Glucose (70-100) mg/dL POC Whole Bld Glucose 266 H (70 - 100) mg/dL Calcium (8.5-10.3) mg/dL Phosphorus 4.5 (2.5-4.6) mg/dL Magnesium (1.7-2.8) mg/dL Total Bilirubin (0.2-1.0) mg/dL AST (10-42) IU/L ALT (10-60) IU/L Alkaline Phosphatase (42-121) IU/L Troponin I High Sens (2.3-19.7) ng/L B-Natriuretic Peptide (5-100) pg/mL Total Protein (6.7-8.2) g/dL Albumin (3.2-5.5) g/dL Globulin (2.1-4.2) g/dL Albumin/Globulin Ratio (1.0-2.2) Lipase (22-51) U/L TSH 1.00 (0.34-5.60) uIU/mL Urine Color Urine Clarity (CLEAR) Urine pH (5.0-7.5) PH Ur Specific [place] (1.002-1.030) Urine Protein (NEGATIVE) mg/dL Urine Glucose (UA) (NEGATIVE) mg/dL Urine Ketones (NEGATIVE) mg/dL Urine Occult Blood (NEGATIVE) Urine Nitrite (NEGATIVE) Urine Bilirubin (NEGATIVE) Urine Urobilinogen (NORMAL) E.U./dL Ur Leukocyte Esterase (NEGATIVE) Urine RBC (0-5) /HPF Urine WBC (0-3) /HPF Ur Squamous Epith Cells (<= Few) Urine Bacteria (None Seen) /HPF Ur Microscopic Review Urine Culture Comments Nasal Screen MRSA (PCR) (NEGATIVE) 07/05/20 07/05/20 07/05/20 Range/Units 04:30 04:30 04:30 WBC 5.7 (4.8-10.8) x10^3/uL RBC 3.70 L (4.70-6.10) 10^6/uL Hgb 11.7 L (14.0-18.0) g/dL Hct 35.0 L (42.0-52.0) % MCV 94.6 H (80.0-94.0) fL MCH 31.6 H (27.0-31.0) pg MCHC 33.4 (32.0-36.0) g/dL RDW 14.7 (12.0-15.0) % Plt Count 186 (130-450) 10^3/uL MPV 10.7 (7.4-11.4) fL Neut # (Auto) 3.3 (1.5-6.6) 10^3/uL Lymph # (Auto) 1.7 (1.5-3.5) 10^3/uL [place] # (Auto) 0.5 (0.0-1.0) 10^3/uL Eos # (Auto) 0.2 (0.0-0.7) 10^3/uL Baso # (Auto) 0.0 (0.0-0.1) 10^3/uL Absolute Nucleated RBC 0.00 x10^3/uL Nucleated RBC % 0.0 /100WBC PT (9.9-12.6) secs INR (0.8-1.2) Sodium 140 (135-145) mmol/L Potassium 3.2 L (3.5-5.0) mmol/L Chloride 105 (101-111) mmol/L Carbon Dioxide 27 (21-32) mmol/L Anion Gap 8.0 (6-13) BUN 15 (6-20) mg/dL Creatinine 0.8 (0.6-1.2) mg/dL Estimated GFR (MDRD) 94 (>89) Glucose 215 H (70-100) mg/dL POC Whole Bld Glucose (70 - 100) mg/dL Calcium 8.7 (8.5-10.3) mg/dL Phosphorus (2.5-4.6) mg/dL Magnesium 1.7 (1.7-2.8) mg/dL Total Bilirubin (0.2-1.0) mg/dL AST (10-42) IU/L ALT (10-60) IU/L Alkaline Phosphatase (42-121) IU/L Troponin I High Sens (2.3-19.7) ng/L B-Natriuretic Peptide 145 H (5-100) pg/mL Total Protein (6.7-8.2) g/dL Albumin (3.2-5.5) g/dL Globulin (2.1-4.2) g/dL Albumin/Globulin Ratio (1.0-2.2) Lipase (22-51) U/L TSH (0.34-5.60) uIU/mL Urine Color Urine Clarity (CLEAR) Urine pH (5.0-7.5) PH Ur Specific [place] (1.002-1.030) Urine Protein (NEGATIVE) mg/dL Urine Glucose (UA) (NEGATIVE) mg/dL Urine Ketones (NEGATIVE) mg/dL Urine Occult Blood (NEGATIVE) Urine Nitrite (NEGATIVE) Urine Bilirubin (NEGATIVE) Urine Urobilinogen (NORMAL) E.U./dL Ur Leukocyte Esterase (NEGATIVE) Urine RBC (0-5) /HPF Urine WBC (0-3) /HPF Ur Squamous Epith Cells (<= Few) Urine Bacteria (None Seen) /HPF Ur Microscopic Review Urine Culture Comments Nasal Screen MRSA (PCR) (NEGATIVE) 07/04/20 07/04/20 07/04/20 Range/Units 20:49 18:30 17:14 WBC (4.8-10.8) x10^3/uL RBC (4.70-6.10) 10^6/uL Hgb (14.0-18.0) g/dL Hct (42.0-52.0) % MCV (80.0-94.0) fL MCH (27.0-31.0) pg MCHC (32.0-36.0) g/dL RDW (12.0-15.0) % Plt Count (130-450) 10^3/uL MPV (7.4-11.4) fL Neut # (Auto) (1.5-6.6) 10^3/uL Lymph # (Auto) (1.5-3.5) 10^3/uL [place] # (Auto) (0.0-1.0) 10^3/uL Eos # (Auto) (0.0-0.7) 10^3/uL Baso # (Auto) (0.0-0.1) 10^3/uL Absolute Nucleated RBC x10^3/uL Nucleated RBC % /100WBC PT (9.9-12.6) secs INR (0.8-1.2) Sodium (135-145) mmol/L Potassium (3.5-5.0) mmol/L Chloride (101-111) mmol/L Carbon Dioxide (21-32) mmol/L Anion Gap (6-13) BUN (6-20) mg/dL Creatinine (0.6-1.2) mg/dL Estimated GFR (MDRD) (>89) Glucose (70-100) mg/dL POC Whole Bld Glucose 168 H (70 - 100) mg/dL Calcium (8.5-10.3) mg/dL Phosphorus (2.5-4.6) mg/dL Magnesium (1.7-2.8) mg/dL Total Bilirubin (0.2-1.0) mg/dL AST (10-42) IU/L ALT (10-60) IU/L Alkaline Phosphatase (42-121) IU/L Troponin I High Sens 12.9 (2.3-19.7) ng/L B-Natriuretic Peptide (5-100) pg/mL Total Protein (6.7-8.2) g/dL Albumin (3.2-5.5) g/dL Globulin (2.1-4.2) g/dL Albumin/Globulin Ratio (1.0-2.2) Lipase (22-51) U/L TSH (0.34-5.60) uIU/mL Urine Color Urine Clarity (CLEAR) Urine pH (5.0-7.5) PH Ur Specific [place] (1.002-1.030) Urine Protein (NEGATIVE) mg/dL Urine Glucose (UA) (NEGATIVE) mg/dL Urine Ketones (NEGATIVE) mg/dL Urine Occult Blood (NEGATIVE) Urine Nitrite (NEGATIVE) Urine Bilirubin (NEGATIVE) Urine Urobilinogen (NORMAL) E.U./dL Ur Leukocyte Esterase (NEGATIVE) Urine RBC (0-5) /HPF Urine WBC (0-3) /HPF Ur Squamous Epith Cells (<= Few) Urine Bacteria (None Seen) /HPF Ur Microscopic Review Urine Culture Comments Nasal Screen MRSA (PCR) NEGATIVE (NEGATIVE) 07/04/20 07/04/20 07/04/20 Range/Units 15:00 13:42 13:42 WBC (4.8-10.8) x10^3/uL RBC (4.70-6.10) 10^6/uL Hgb (14.0-18.0) g/dL Hct (42.0-52.0) % MCV (80.0-94.0) fL MCH (27.0-31.0) pg MCHC (32.0-36.0) g/dL RDW (12.0-15.0) % Plt Count (130-450) 10^3/uL MPV (7.4-11.4) fL Neut # (Auto) (1.5-6.6) 10^3/uL Lymph # (Auto) (1.5-3.5) 10^3/uL [place] # (Auto) (0.0-1.0) 10^3/uL Eos # (Auto) (0.0-0.7) 10^3/uL Baso # (Auto) (0.0-0.1) 10^3/uL Absolute Nucleated RBC x10^3/uL Nucleated RBC % /100WBC PT 13.9 H (9.9-12.6) secs INR 1.3 H (0.8-1.2) Sodium (135-145) mmol/L Potassium (3.5-5.0) mmol/L Chloride (101-111) mmol/L Carbon Dioxide (21-32) mmol/L Anion Gap (6-13) BUN (6-20) mg/dL Creatinine (0.6-1.2) mg/dL Estimated GFR (MDRD) (>89) Glucose (70-100) mg/dL POC Whole Bld Glucose (70 - 100) mg/dL Calcium (8.5-10.3) mg/dL Phosphorus (2.5-4.6) mg/dL Magnesium (1.7-2.8) mg/dL Total Bilirubin (0.2-1.0) mg/dL AST (10-42) IU/L ALT (10-60) IU/L Alkaline Phosphatase (42-121) IU/L Troponin I High Sens (2.3-19.7) ng/L B-Natriuretic Peptide 172 H (5-100) pg/mL Total Protein (6.7-8.2) g/dL Albumin (3.2-5.5) g/dL Globulin (2.1-4.2) g/dL Albumin/Globulin Ratio (1.0-2.2) Lipase (22-51) U/L TSH (0.34-5.60) uIU/mL Urine Color YELLOW Urine Clarity CLEAR (CLEAR) Urine pH 6.0 (5.0-7.5) PH Ur Specific [place] 1.025 (1.002-1.030) Urine Protein 30 H (NEGATIVE) mg/dL Urine Glucose (UA) NEGATIVE (NEGATIVE) mg/dL Urine Ketones NEGATIVE (NEGATIVE) mg/dL Urine Occult Blood NEGATIVE (NEGATIVE) Urine Nitrite NEGATIVE (NEGATIVE) Urine Bilirubin NEGATIVE (NEGATIVE) Urine Urobilinogen 1 (NORMAL) (NORMAL) E.U./dL Ur Leukocyte Esterase NEGATIVE (NEGATIVE) Urine RBC 0-5 (0-5) /HPF Urine WBC 0-3 (0-3) /HPF Ur Squamous Epith Cells FEW Squamous (<= Few) Urine Bacteria Rare (None Seen) /HPF Ur Microscopic Review INDICATED Urine Culture Comments NOT INDICATED Nasal Screen MRSA (PCR) (NEGATIVE) 07/04/20 07/04/20 07/04/20 Range/Units 13:42 13:42 13:42 WBC 7.9 (4.8-10.8) x10^3/uL RBC 4.09 L (4.70-6.10) 10^6/uL Hgb 13.0 L (14.0-18.0) g/dL Hct 38.1 L (42.0-52.0) % MCV 93.2 (80.0-94.0) fL MCH 31.8 H (27.0-31.0) pg MCHC 34.1 (32.0-36.0) g/dL RDW 14.6 (12.0-15.0) % Plt Count 202 (130-450) 10^3/uL MPV 10.5 (7.4-11.4) fL Neut # (Auto) 5.4 (1.5-6.6) 10^3/uL Lymph # (Auto) 1.7 (1.5-3.5) 10^3/uL [place] # (Auto) 0.5 (0.0-1.0) 10^3/uL Eos # (Auto) 0.2 (0.0-0.7) 10^3/uL Baso # (Auto) 0.0 (0.0-0.1) 10^3/uL Absolute Nucleated RBC 0.00 x10^3/uL Nucleated RBC % 0.0 /100WBC PT (9.9-12.6) secs INR (0.8-1.2) Sodium 140 (135-145) mmol/L Potassium 3.6 (3.5-5.0) mmol/L Chloride 101 (101-111) mmol/L Carbon Dioxide 26 (21-32) mmol/L Anion Gap 13.0 (6-13) BUN 15 (6-20) mg/dL Creatinine 0.9 (0.6-1.2) mg/dL Estimated GFR (MDRD) 82 L (>89) Glucose 172 H (70-100) mg/dL POC Whole Bld Glucose (70 - 100) mg/dL Calcium 9.2 (8.5-10.3) mg/dL Phosphorus (2.5-4.6) mg/dL Magnesium (1.7-2.8) mg/dL Total Bilirubin 0.8 (0.2-1.0) mg/dL AST 21 (10-42) IU/L ALT 23 (10-60) IU/L Alkaline Phosphatase 66 (42-121) IU/L Troponin I High Sens 10.9 (2.3-19.7) ng/L B-Natriuretic Peptide (5-100) pg/mL Total Protein 7.6 (6.7-8.2) g/dL Albumin 3.5 (3.2-5.5) g/dL Globulin 4.1 (2.1-4.2) g/dL Albumin/Globulin Ratio 0.9 L (1.0-2.2) Lipase 30 (22-51) U/L TSH (0.34-5.60) uIU/mL Urine Color Urine Clarity (CLEAR) Urine pH (5.0-7.5) PH Ur Specific [place] (1.002-1.030) Urine Protein (NEGATIVE) mg/dL Urine Glucose (UA) (NEGATIVE) mg/dL Urine Ketones (NEGATIVE) mg/dL Urine Occult Blood (NEGATIVE) Urine Nitrite (NEGATIVE) Urine Bilirubin (NEGATIVE) Urine Urobilinogen (NORMAL) E.U./dL Ur Leukocyte Esterase (NEGATIVE) Urine RBC (0-5) /HPF Urine WBC (0-3) /HPF Ur Squamous Epith Cells (<= Few) Urine Bacteria (None Seen) /HPF Ur Microscopic Review Urine Culture Comments Nasal Screen MRSA (PCR) (NEGATIVE) Assessment/Plan - Problem List (1) Atrial fibrillation with RVR Impression: He remains in atrial fibrillation [facility] His heart is better controlled in the 90s. TSH is within normal limits. We will start metoprolol 50 mg twice daily. We will look to wean the diltiazem drip today. Discussed anticoagulation and he is agreeable to Eliquis. He would prefer not to use Coumadin and so we will start him on Eliquis today. Follow-up echocardiogram. Continue to monitor on telemetry. (2) Suspected CHF (congestive heart failure) Impression: Suspect there is a component of CHF given his chest x-ray reveals pulmonary vascular congestion. His BNP is only in the 140s but he is obese which decrease the BNP. He is no longer on oxygen and is now on room air with oxygen saturation in the mid 90s. An echocardiogram has been ordered and we will follow this up. We will continue to gently diurese him with Lasix IV twice daily. Strict I's and O's. Daily weights. We will look transition to oral Lasix tomorrow. (3) Community acquired pneumonia Impression: His chest x-ray was consistent with pulmonary edema although pneumonia cannot be excluded. He did not have a fever or a white count. He has been started on an tibiotics and we will continue the azithromycin and ceftriaxone to complete a total of 5 days of therapy. We will change him to oral antibiotics tomorrow. Continue to monitor his respiratory status. (4) Type 2 diabetes mellitus Impression: Blood glucose is elevated at greater than 200. He is on Actos, glipizide, metformin at home. We will start him on Lantus 10 units daily plus sliding scale. Carb controlled diet. Check A1c. (5) Hypertension Impression: His blood pressure has been elevated today with systolic in the 140s to 150s. We will resume his home lisinopril. (6) GIANFRANCO on CPAP Impression: Stable. Continue home CPAP. (7) BPH (benign prostatic hyperplasia) Impression: Stable. Continue home medications.
[2020-07-05] MEDS: ATORVASTATIN 10 MG TABLET PO SCH (20:25)
[2020-07-05] MEDS: FINASTERIDE 5 MG TABLET PO SCH (20:26)
[2020-07-05] MEDS: APIXABAN 5 MG TABLET PO SCH (20:29)
[2020-07-05] MEDS: TEMAZEPAM 15 MG CAPSULE PO PRN (22:20)
[2020-07-06] MEDS: SODIUM CHLORIDE FLUSH 0.9% 10 ML SYRINGE IVP SCH ×4 (00:36→23:43)
[2020-07-06 05:03] LABS: CALCIUM 9.1 mg/dL (8.5-10.3); MAGNESIUM 1.8 mg/dL (1.7-2.8)
[2020-07-06] MEDS: FUROSEMIDE 20 MG/2 ML VIAL IVP SCH (06:17)
[2020-07-06] MEDS ORDERED: POTASSIUM CHLORIDE 20 MEQ TABLET PO ONE (07:00)
--- NOTE | 2020-07-06 08:09 | PROVIDER PROGRESS NOTE ---
Subjective - Prog Note Date Prog Note Date: 07/06/20 - Subjective Subjective: Feels like his breathing has improved. Reports no chest pain or palpitations. He thinks he will be ready to go home tomorrow. Current Medications - Current Medications Current Medications: Active Medications Acetaminophen (Tylenol) 650 mg PO Q4HR PRN PRN Reason: Pain 1 to 4 Apixaban (Eliquis) 5 mg PO BID [facility] Last Admin: 07/06/20 08:18 Dose: 5 mg Documented by: Aspirin ([facility] Aspirin) 81 mg PO DAILY [facility] Last Admin: 07/06/20 08:19 Dose: 81 mg Documented by: Atorvastatin Calcium (Lipitor) 20 mg PO QPM [facility] Last Admin: 07/05/20 20:25 Dose: 20 mg Documented by: Azithromycin (Zithromax) 250 mg PO DAILY [facility] Stop: 07/09/20 00:00 Last Admin: 07/06/20 08:17 Dose: 250 mg Documented by: Finasteride (Proscar) 5 mg PO 2100 [facility] Last Admin: 07/05/20 20:26 Dose: 5 mg Documented by: Furosemide (Lasix) 40 mg PO DAILY [facility] Ceftriaxone Sodium 2 gm/ (Sodium Chloride) 100 mls @ 200 mls/hr IV DAILY [facility] Last Infusion: 07/06/20 09:40 Dose: Infused Documented by: Insulin Aspart (Novolog) 2 - 10 unit SUBQ 0800,1200,1700,2100 [facility]; Protocol Last Admin: 07/06/20 16:55 Dose: 6 unit Documented by: Insulin Glargine (Lantus Solostar) 20 unit SUBQ QDBREAKFAST [facility] Last Admin: 07/06/20 12:32 Dose: 10 unit Documented by: Lisinopril (Zestril) 40 mg PO DAILY [facility] Last Admin: 07/06/20 08:17 Dose: 40 mg Documented by: Metoprolol Tartrate (Lopressor) 75 mg PO BID [facility] Last Admin: 07/06/20 08:15 Dose: 75 mg Documented by: Ondansetron HCl (Zofran Inj) 4 mg IVP Q6HR PRN PRN Reason: Nausea / Vomiting Sodium Chloride (Normal Saline Flush 0.9%) 10 ml IVP 0100,0900,1700 [facility] Last Admin: 07/06/20 16:56 Dose: 10 ml Documented by: Sodium Chloride (Normal Saline Flush 0.9%) 10 ml IVP PRN PRN PRN Reason: NEEDED PER PROVIDER ORDERS Tamsulosin HCl (Flomax) 0.4 mg PO DAILY [facility] Last Admin: 07/06/20 08:17 Dose: 0.4 mg Documented by: Temazepam (Restoril) 15 mg PO QPM PRN PRN Reason: Insomnia Last Admin: 07/05/20 22:20 Dose: 15 mg Documented by: Aspirin Chewable [[place] Aspirin] 81 mg PO DAILY 11/14/17 Finasteride [Proscar] 5 mg PO 209911/14/17 Glipizide 5 mg PO DAILY 11/14/17 Lovastatin 40 mg PO 209911/14/17 Metformin HCl 1,000 mg PO BID 11/14/17 Tamsulosin [Flomax] 0.4 mg PO DAILY 11/14/17 lisinopriL [Lisinopril] 40 mg PO DAILY 11/14/17 Pioglitazone HCl [Actos] 30 mg PO DAILY 10/24/18 Objective - Vital Signs/Intake & Output Reviewed Vital Signs: Yes Vital Signs: Vital Signs x48h Temp Pulse Resp BP Pulse Ox 07/06/20 08:04 118 H 20 177/141 H 95 07/06/20 07:00 36.5 C 129 H 27 H 185/127 H 93 07/06/20 06:00 92 23 150/81 H 94 07/06/20 05:00 103 H 17 149/93 H 97 07/06/20 04:00 36.4 C L 95 16 155/99 H 92 07/06/20 03:00 124 H 159/103 H 96 07/06/20 02:00 84 160/107 H 96 07/06/20 01:00 80 129/79 Intake & Output: Intake & Output 07/03/20 07/04/20 07/05/20 07/06/20 23:59 23:59 23:59 23:59 Intake Total 234.710 5507.833 150 Output Total 1125 4100 1700 Balance -717.963 -1111.167 -1550 - Objective General Appearance: positive: No acute distress, Alert Eyes Bilateral: positive: Normal inspection, Conjunctivae nml ENT: positive: ENT inspection nml Neck: positive: Nml inspection Respiratory: positive: No respiratory distress. negative: Wheezes, Rales Cardiovascular: positive: Irregularly irregular, Tachycardia. negative: Bradycardia, Systolic murmur Abdomen: positive: Non-tender, No distention. negative: Tenderness Skin: positive: Warm, Dry Extremities: positive: Full ROM, Pedal edema (+1 1 pitting edema in the bilateral lower extremities at the ankles.) Neurologic/Psychiatric: positive: Oriented x3 - Lab Results Fish Bones: 07/05/20 04:30 07/06/20 04:20 Other Labs: Lab Results x24hrs 07/06/20 07/06/20 07/06/20 Range/Units 07:46 04:20 04:20 Sodium 144 (135-145) mmol/L Potassium 3.4 L (3.5-5.0) mmol/L Chloride 108 (101-111) mmol/L Carbon Dioxide 26 (21-32) mmol/L Anion Gap 10.0 (6-13) BUN 23 H (6-20) mg/dL Creatinine 1.0 (0.6-1.2) mg/dL Estimated GFR (MDRD) 73 L (>89) Glucose 202 H (70-100) mg/dL POC Whole Bld Glucose 223 H (70 - 100) mg/dL Calcium 9.1 (8.5-10.3) mg/dL Magnesium 1.8 (1.7-2.8) mg/dL B-Natriuretic Peptide 208 H (5-100) pg/mL 07/05/20 07/05/20 07/05/20 Range/Units 20:16 16:31 11:55 Sodium (135-145) mmol/L Potassium (3.5-5.0) mmol/L Chloride (101-111) mmol/L Carbon Dioxide (21-32) mmol/L Anion Gap (6-13) BUN (6-20) mg/dL Creatinine (0.6-1.2) mg/dL Estimated GFR (MDRD) (>89) Glucose (70-100) mg/dL POC Whole Bld Glucose 226 H 134 H 271 H (70 - 100) mg/dL Calcium (8.5-10.3) mg/dL Magnesium (1.7-2.8) mg/dL B-Natriuretic Peptide (5-100) pg/mL 07/05/20 Range/Units 08:08 Sodium (135-145) mmol/L Potassium (3.5-5.0) mmol/L Chloride (101-111) mmol/L Carbon Dioxide (21-32) mmol/L Anion Gap (6-13) BUN (6-20) mg/dL Creatinine (0.6-1.2) mg/dL Estimated GFR (MDRD) (>89) Glucose (70-100) mg/dL POC Whole Bld Glucose 266 H (70 - 100) mg/dL Calcium (8.5-10.3) mg/dL Magnesium (1.7-2.8) mg/dL B-Natriuretic Peptide (5-100) pg/mL ABX Reporting Has patient been on IV antibiotics over the past 48 hours?: Yes Assessment/Plan - Problem List (1) Atrial fibrillation with RVR Impression: He was tachycardic this morning with heart rates in the 110s to 120s. We in crease metoprolol 30 mg twice daily and one-time dose of Lopressor 5 mg IV once and his heart rate improved into the 80s. An echocardiogram has been ordered and will be obtained today. We will continue metoprolol and Eliquis. Continue to monitor on telemetry. If he remains tachycardic, we will increase metoprolol to 100 mg twice daily. (2) Suspected CHF (congestive heart failure) Impression: Suspect his dyspnea secondary to heart failure rather than pneumonia although his x-ray cannot rule out possible infiltrate. His BNP is only the 200s but he is obese and this can decrease the BNP level. He does have lower extremity edema and evidence of pulmonary vascular congestion on imaging. He feels improved today and so we will switch him to an oral diuretic. An echocardiogram has been ordered and will be obtained today. If his ejection fraction is reduced, he will need appropriate heart failure therapy. (3) Community acquired pneumonia Impression: Chest x-ray could not rule out a possible infiltrate. Although he has no fever or white count, he had been started on antibiotics and so we will continue these to complete 5 days of therapy. COVID-19 is negative. We will switch him to oral Ceftin and azithromycin. (4) Type 2 diabetes mellitus Impression: His blood glucose remains elevated greater than 200. We will increase his Lantus to 20 units daily and continue with sliding scale. His A1c is 7.1%. He is on Actos at home which will need to be discontinued given the concern for heart failure. (5) Hypertension Impression: His blood pressure is elevated with systolic in the 140s to 150s. His home lisinopril has been resumed. We will increase his home metoprolol today. If his ejection fraction is reduced, we will add Aldactone as well. We will continue to monitor during this hospitalization. (6) GIANFRANCO on CPAP Impression: Stable. Continue home CPAP. (7) BPH (benign prostatic hyperplasia) Impression: Stable. Continue home medications.
[2020-07-06] MEDS: METOPROLOL TARTRATE 25 MG TABLET PO SCH ×2 (08:15→20:31)
[2020-07-06] MEDS: TAMSULOSIN 0.4 MG CAPSULE PO SCH (08:17)
[2020-07-06] MEDS: AZITHROMYCIN 250 MG TABLET PO SCH (08:17)
[2020-07-06] MEDS: lisinopriL 20 MG TABLET PO SCH (08:17)
[2020-07-06] MEDS: APIXABAN 5 MG TABLET PO SCH ×2 (08:18→20:35)
[2020-07-06] MEDS: ASPIRIN CHEW 81 MG TABLET PO SCH (08:19)
[2020-07-06] MEDS: INSULIN ASPART 300 UNIT/3 ML PEN SUBQ SCH ×4 (08:21→20:42)
[2020-07-06] MEDS: INSULIN GLARGINE 300 UNIT/3 ML PEN SUBQ SCH ×3 (08:26→12:32)
[2020-07-06] MEDS ORDERED: METOPROLOL 5 MG/5 ML VIAL IVP STA (08:41)
[2020-07-06] MEDS ORDERED: FUROSEMIDE 40 MG TABLET PO SCH (09:00)
[2020-07-06] MEDS: cefTRIAXone 2 GM in SODIUM CHLORIDE 0.9% MINIBAG 100 ML IV SCH (09:02)
[2020-07-06 12:38] LABS: HEMOGLOBIN A1c% 7.1 % (4.27-6.07)
--- NOTE | 2020-07-06 15:00 | PHARMACY PROGRESS NOTE ---
- Monitoring Indication for anticoagulation: Atrial Fibrillation Previous home regime: None - New start anticoagulation Potentially interacting medications: Antiplatelet (Aspirin) may increase risk of bleed Other anticoagulation: None Risk factors for bleed: Hypertension, Heart disease or [place], Age >65, Diabetes - Recommendations Dosing: Current Dose: 5mg PO BID Anticoagulation Monitoring 07/05/20 07/04/20 07/04/20 04:30 13:42 13:42 Hgb 11.7 L 13.0 L Hct 35.0 L 38.1 L PT 13.9 H INR 1.3 H Last Dose Given: 5mg S&S of bleeding: none noted Pharmacy recommendation: Continue current regime
[2020-07-06] MEDS: FINASTERIDE 5 MG TABLET PO SCH (20:31)
[2020-07-06] MEDS: SPIRONOLACTONE 25 MG TABLET PO SCH (20:31)
[2020-07-06] MEDS: ATORVASTATIN 10 MG TABLET PO SCH (20:35)
[2020-07-07 05:43] LABS: BASOPHILS % (AUTO) 0.5 %; EOSINOPHILS # (AUTO) 0.3 10^3/uL (0.0-0.7); EOSINOPHILS % (AUTO) 3.5 %; HGB - HEMOGLOBIN 12.3 g/dL (14.0-18.0); LYMPHOCYTES # (AUTO) 2.2 10^3/uL (1.5-3.5); LYMPHOCYTES % (AUTO) 28.5 %; MEAN CORPUSCULAR HEMOGLOBIN 31.2 pg (27.0-31.0); MEAN CORPUSCULAR HGB CONC 33.5 g/dL (32.0-36.0); MEAN CORPUSCULAR VOLUME 93.1 fL (80.0-94.0); MEAN PLATELET VOLUME 10.9 fL (7.4-11.4); MONOCYTES # (AUTO) 0.6 10^3/uL (0.0-1.0); MONOCYTES % (AUTO) 7.3 %; NEUTROPHILS # (AUTO) 4.6 10^3/uL (1.5-6.6); NEUTROPHILS % (AUTO) 59.9 %; PLT - PLATELET COUNT 215 10^3/uL (130-450); RED BLOOD COUNT 3.94 10^6/uL (4.70-6.10); RED CELL DISTRIBUTION WIDTH 14.3 % (12.0-15.0); WHITE BLOOD COUNT 7.6 x10^3/uL (4.8-10.8)
[2020-07-07 05:53] LABS: CALCIUM 9.1 mg/dL (8.5-10.3); CREATININE 0.9 mg/dL (0.6-1.2); MAGNESIUM 1.7 mg/dL (1.7-2.8); PHOSPHORUS 3.9 mg/dL (2.5-4.6)
[2020-07-07] MEDS ORDERED: POTASSIUM CHLORIDE 20 MEQ TABLET PO ONE (08:00)
[2020-07-07] MEDS ORDERED: POTASSIUM CHLORIDE 20 MEQ TABLET PO SCH (08:00)
[2020-07-07] MEDS: INSULIN ASPART 300 UNIT/3 ML PEN SUBQ SCH ×5 (08:06→21:47)
[2020-07-07] MEDS: INSULIN GLARGINE 300 UNIT/3 ML PEN SUBQ SCH (08:08)
[2020-07-07] MEDS: SPIRONOLACTONE 25 MG TABLET PO SCH (08:26)
[2020-07-07] MEDS: APIXABAN 5 MG TABLET PO SCH ×2 (08:28→21:32)
[2020-07-07] MEDS: AZITHROMYCIN 250 MG TABLET PO SCH (08:33)
[2020-07-07] MEDS: lisinopriL 20 MG TABLET PO SCH (08:37)
[2020-07-07] MEDS: FUROSEMIDE 40 MG TABLET PO SCH (08:37)
[2020-07-07] MEDS: SODIUM CHLORIDE FLUSH 0.9% 10 ML SYRINGE IVP SCH ×2 (08:47→17:19)
[2020-07-07] MEDS: TAMSULOSIN 0.4 MG CAPSULE PO SCH (08:47)
[2020-07-07] MEDS ORDERED: METOPROLOL SUCCINATE 50 MG TABLET PO SCH (09:00)
[2020-07-07] MEDS ORDERED: FUROSEMIDE 40 MG/4 ML VIAL IVP SCH (10:59)
--- NOTE | 2020-07-07 11:32 | XRAY Report ---
PROCEDURE: Chest 1 View X-Ray INDICATIONS: Follow up CHF. TECHNIQUE: One view of the chest was acquired. COMPARISON: Prior similar chest plain film 07/04/2020. FINDINGS: Surgical changes and devices: None. Lungs and pleura: No pleural effusions or pneumothorax. Lungs are mildly edematous as was previousl y the case. Mediastinum: Mediastinal contours appear normal. Heart size is normal. Bones and chest wall: No suspicious bony lesions. Overlying soft tissues appear unremarkable. IMPRESSION: Persistent mild pulmonary edema pattern, without cardiomegaly. Cause of this edema pattern is indeter minate. Reviewed by: Ambrose Brown MD on 07/07/2020 11:31 AM PDT Approved by: Ambrose Borwn MD on 07/07/2020 11:31 AM PDT Station ID: [id number]
[2020-07-07] MEDS ORDERED: METOPROLOL 5 MG/5 ML VIAL IVP SCH (13:15)
--- NOTE | 2020-07-07 14:18 | PROVIDER PROGRESS NOTE ---
Subjective - Prog Note Date Prog Note Date: 07/07/20 - Subjective Subjective: Feels improved but still has dyspnea with exertion pulses better compared to admission. His heart has been elevated in the 130s this morning. He reports no palpitations. Still has some orthopnea but this is also improved. He feels his lower extremity edema has also improved. Current Medications - Current Medications Current Medications: Active Medications Acetaminophen (Tylenol) 650 mg PO Q4HR PRN PRN Reason: Pain 1 to 4 Apixaban (Eliquis) 5 mg PO BID [facility] Last Admin: 07/07/20 08:28 Dose: 5 mg Documented by: Atorvastatin Calcium (Lipitor) 20 mg PO QPM [facility] Last Admin: 07/06/20 20:35 Dose: 20 mg Documented by: Azithromycin (Zithromax) 250 mg PO DAILY [facility] Stop: 07/09/20 00:00 Last Admin: 07/07/20 08:33 Dose: 250 mg Documented by: Cefuroxime Axetil (Ceftin) 500 mg PO BID [facility] Last Admin: 07/07/20 08:35 Dose: 500 mg Documented by: Finasteride (Proscar) 5 mg PO 2100 [facility] Last Admin: 07/06/20 20:31 Dose: 5 mg Documented by: Furosemide (Lasix) 40 mg PO DAILY [facility] Last Admin: 07/07/20 08:37 Dose: 40 mg Documented by: Insulin Aspart (Novolog) 2 - 10 unit SUBQ 0800,1200,1700,2100 [facility]; Protocol Last Admin: 07/07/20 12:44 Dose: 6 unit Documented by: Insulin Glargine (Lantus Solostar) 20 unit SUBQ QDBREAKFAST [facility] Last Admin: 07/07/20 08:08 Dose: 20 unit Documented by: Lisinopril (Zestril) 40 mg PO DAILY [facility] Last Admin: 07/07/20 08:37 Dose: 40 mg Documented by: Metoprolol Succinate (Toprol Xl) 100 mg PO DAILY [facility] Last Admin: 07/07/20 08:38 Dose: 100 mg Documented by: Ondansetron HCl (Zofran Inj) 4 mg IVP Q6HR PRN PRN Reason: Nausea / Vomiting Sodium Chloride (Normal Saline Flush 0.9%) 10 ml IVP 0100,0900,1700 [facility] Last Admin: 07/07/20 08:47 Dose: 10 ml Documented by: Sodium Chloride (Normal Saline Flush 0.9%) 10 ml IVP PRN PRN PRN Reason: NEEDED PER PROVIDER ORDERS Last Admin: 07/07/20 12:53 Dose: 10 ml Documented by: Spironolactone (Aldactone) 25 mg PO DAILY [facility] Last Admin: 07/07/20 08:26 Dose: 25 mg Documented by: Tamsulosin HCl (Flomax) 0.4 mg PO DAILY [facility] Last Admin: 07/07/20 08:47 Dose: 0.4 mg Documented by: Temazepam (Restoril) 15 mg PO QPM PRN PRN Reason: Insomnia Last Admin: 07/05/20 22:20 Dose: 15 mg Documented by: Aspirin Chewable [[facility] Aspirin] 81 mg PO DAILY 11/14/17 Finasteride [Proscar] 5 mg PO 209911/14/17 Glipizide 5 mg PO DAILY 11/14/17 Lovastatin 40 mg PO 209911/14/17 Metformin HCl 1,000 mg PO BID 11/14/17 Tamsulosin [Flomax] 0.4 mg PO DAILY 11/14/17 lisinopriL [Lisinopril] 40 mg PO DAILY 11/14/17 Pioglitazone HCl [Actos] 30 mg PO DAILY 10/24/18 Objective - Vital Signs/Intake & Output Reviewed Vital Signs: Yes Vital Signs: Vital Signs x48h Temp Pulse Pulse Resp BP BP Pulse Ox 07/07/20 14:10 149/89 H 07/07/20 13:00 85 22 149/89 H 94 07/07/20 10:28 123 H 175/112 H 07/07/20 10:15 114 H 22 152/120 H 96 07/07/20 09:57 117 H 29 H 170/107 H 95 07/07/20 07:47 36.4 C L 94 18 157/99 H Intake & Output: Intake & Output 07/04/20 07/05/20 07/06/20 07/07/20 23:59 23:59 23:59 23:59 Intake Total 363.052 5319.833 1130 Output Total 1126 1950 2400 876 Balance -717.963 -1111.167 -1270 -876 - Objective General Appearance: positive: No acute distress, Alert Eyes Bilateral: positive: Normal inspection, Conjunctivae nml ENT: positive: ENT inspection nml Neck: positive: Nml inspection Respiratory: positive: No respiratory distress, Other (Faint crackles bilaterally.). negative: Wheezes Cardiovascular: positive: No murmur, Irregularly irregular, Tachycardia. negative: Bradycardia, Systolic murmur Abdomen: positive: Non-tender, No distention. negative: Tenderness, Guarding, Rebound Skin: positive: Warm, Dry Extremities: positive: Pedal edema (He has +1 pitting edema in his bilateral lower extremities at the ankles.) Neurologic/Psychiatric: positive: Oriented x3, Motor nml. negative: Disoriented to person, Disoriented to place, Disoriented to time - Lab Results Fish Bones: 07/07/20 05:33 07/07/20 05:33 Other Labs: Lab Results x24hrs 07/07/20 07/07/20 07/07/20 Range/Units 11:43 07:40 05:33 WBC (4.8-10.8) x10^3/uL RBC (4.70-6.10) 10^6/uL Hgb (14.0-18.0) g/dL Hct (42.0-52.0) % MCV (80.0-94.0) fL MCH (27.0-31.0) pg MCHC (32.0-36.0) g/dL RDW (12.0-15.0) % Plt Count (130-450) 10^3/uL MPV (7.4-11.4) fL Neut # (Auto) (1.5-6.6) 10^3/uL Lymph # (Auto) (1.5-3.5) 10^3/uL [place] # (Auto) (0.0-1.0) 10^3/uL Eos # (Auto) (0.0-0.7) 10^3/uL Baso # (Auto) (0.0-0.1) 10^3/uL Absolute Nucleated RBC x10^3/uL Nucleated RBC % /100WBC Sodium 142 (135-145) mmol/L Potassium 3.4 L (3.5-5.0) mmol/L Chloride 103 (101-111) mmol/L Carbon Dioxide 26 (21-32) mmol/L Anion Gap 13.0 (6-13) BUN 25 H (6-20) mg/dL Creatinine 0.9 (0.6-1.2) mg/dL Estimated GFR (MDRD) 82 L (>89) Glucose 188 H (70-100) mg/dL POC Whole Bld Glucose 231 H 178 H (70 - 100) mg/dL Calcium 9.1 (8.5-10.3) mg/dL Phosphorus 3.9 (2.5-4.6) mg/dL Magnesium 1.7 (1.7-2.8) mg/dL 07/07/20 07/06/20 07/06/20 Range/Units 05:33 20:30 16:42 WBC 7.6 (4.8-10.8) x10^3/uL RBC 3.94 L (4.70-6.10) 10^6/uL Hgb 12.3 L (14.0-18.0) g/dL Hct 36.7 L (42.0-52.0) % MCV 93.1 (80.0-94.0) fL MCH 31.2 H (27.0-31.0) pg MCHC 33.5 (32.0-36.0) g/dL RDW 14.3 (12.0-15.0) % Plt Count 215 (130-450) 10^3/uL MPV 10.9 (7.4-11.4) fL Neut # (Auto) 4.6 (1.5-6.6) 10^3/uL Lymph # (Auto) 2.2 (1.5-3.5) 10^3/uL [place] # (Auto) 0.6 (0.0-1.0) 10^3/uL Eos # (Auto) 0.3 (0.0-0.7) 10^3/uL Baso # (Auto) 0.0 (0.0-0.1) 10^3/uL Absolute Nucleated RBC 0.00 x10^3/uL Nucleated RBC % 0.0 /100WBC Sodium (135-145) mmol/L Potassium (3.5-5.0) mmol/L Chloride (101-111) mmol/L Carbon Dioxide (21-32) mmol/L Anion Gap (6-13) BUN (6-20) mg/dL Creatinine (0.6-1.2) mg/dL Estimated GFR (MDRD) (>89) Glucose (70-100) mg/dL POC Whole Bld Glucose 206 H 234 H (70 - 100) mg/dL Calcium (8.5-10.3) mg/dL Phosphorus (2.5-4.6) mg/dL Magnesium (1.7-2.8) mg/dL ABX Reporting Has patient been on IV antibiotics over the past 48 hours?: No Assessment/Plan - Problem List (1) Acute HFrEF (heart failure with reduced ejection fraction) Impression: Preliminary echocardiogram report has revealed an ejection fraction of 35%. Although he has improved, a repeat x-ray today system pulmonary vascular congestion he still has orthopnea and dyspnea with exertion. His BNP is only minimally elevated. We will give another dose of IV Lasix today and switch to oral diuretics tomorrow. We have started him on Aldactone addition to lisinopril. He is on metoprolol tartrate only metoprolol succinate on discharge. I am hopeful he will be able to go home tomorrow as he is significantly improved and he feels like he is close to his baseline. (2) Atrial fibrillation with RVR Impression: He remains tachycardic with heart rates in the 130s and up to 140s with exertion. We have increased his metoprolol to 100 mg twice daily. We will give him a one-time dose of Lopressor 5 mg IV as well. If he remains tachycardic on this increased dose of metoprolol, we will need to consider the use of digoxin. We will continue [facility] Continue to monitor on telemetry. (3) Community acquired pneumonia Impression: Repeat chest x-ray is consistent pulmonary vascular congestion. Given he had already been on antibiotics, we will continue oral antibiotics to complete 5 days of therapy. Today is day 4 of antibiotics. (4) Type 2 diabetes mellitus Impression: His blood clots has been elevated on Lantus and sliding scale. We will add No voLog with meals. His Actos will be discontinued on discharge given the new diagnosis of heart failure. Continue carb controlled diet. (5) Hypertension Impression: His blood pressure remains elevated with systolic in the 140s to 150s. We have increased metoprolol today and we are continuing his lisinopril. We will consider switching to carvedilol from metoprolol if his blood pressure remains poorly controlled. (6) GIANFRANCO on CPAP Impression: Stable. Continue home CPAP. (7) BPH (benign prostatic hyperplasia) Impression: Stable. Continue home medications.
[2020-07-07] MEDS: FINASTERIDE 5 MG TABLET PO SCH (21:32)
[2020-07-07] MEDS: ATORVASTATIN 10 MG TABLET PO SCH (21:32)
[2020-07-07] MEDS: METOPROLOL SUCCINATE 50 MG TABLET PO SCH (21:32)
[2020-07-07] MEDS: TEMAZEPAM 15 MG CAPSULE PO PRN (21:48)
[2020-07-08] MEDS: SODIUM CHLORIDE FLUSH 0.9% 10 ML SYRINGE IVP SCH ×2 (00:26→08:45)
[2020-07-08 05:46] LABS: BASOPHILS % (AUTO) 0.6 %; EOSINOPHILS # (AUTO) 0.3 10^3/uL (0.0-0.7); EOSINOPHILS % (AUTO) 3.9 %; LYMPHOCYTES # (AUTO) 2.3 10^3/uL (1.5-3.5); LYMPHOCYTES % (AUTO) 32.5 %; MEAN CORPUSCULAR HEMOGLOBIN 30.8 pg (27.0-31.0); MEAN CORPUSCULAR VOLUME 93.4 fL (80.0-94.0); MEAN PLATELET VOLUME 10.7 fL (7.4-11.4); MONOCYTES # (AUTO) 0.5 10^3/uL (0.0-1.0); MONOCYTES % (AUTO) 7.4 %; NEUTROPHILS % (AUTO) 55.3 %; PLT - PLATELET COUNT 235 10^3/uL (130-450); RED BLOOD COUNT 4.22 10^6/uL (4.70-6.10); RED CELL DISTRIBUTION WIDTH 14.3 % (12.0-15.0); WHITE BLOOD COUNT 7.2 x10^3/uL (4.8-10.8)
[2020-07-08 05:57] LABS: CREATININE 0.9 mg/dL (0.6-1.2); MAGNESIUM 1.7 mg/dL (1.7-2.8); PHOSPHORUS 4.1 mg/dL (2.5-4.6)
[2020-07-08] MEDS: INSULIN ASPART 300 UNIT/3 ML PEN SUBQ SCH ×4 (08:40→11:52)
[2020-07-08] MEDS: AZITHROMYCIN 250 MG TABLET PO SCH (08:41)
[2020-07-08] MEDS: METOPROLOL SUCCINATE 50 MG TABLET PO SCH (08:41)
[2020-07-08] MEDS: INSULIN GLARGINE 300 UNIT/3 ML PEN SUBQ SCH (08:41)
[2020-07-08] MEDS: FUROSEMIDE 40 MG TABLET PO SCH (08:42)
[2020-07-08] MEDS: TAMSULOSIN 0.4 MG CAPSULE PO SCH (08:42)
[2020-07-08] MEDS: lisinopriL 20 MG TABLET PO SCH (08:42)
[2020-07-08] MEDS: APIXABAN 5 MG TABLET PO SCH (08:42)
[2020-07-08] MEDS: SPIRONOLACTONE 25 MG TABLET PO SCH (08:42)
[2020-07-08 11:30] VITALS: BP 126/79
--- NOTE | 2020-07-08 13:08 | Discharge Plan ---
Discharge Plan Problem Reviewed?: Yes Disposition: Home, Self Care Condition: Stable Prescriptions: Spironolactone [Aldactone] 25 mg PO DAILY #30 tablet Apixaban [Eliquis] 5 mg PO BID #60 tablet Furosemide 20 mg PO DAILY #30 tablet lisinopriL [Lisinopril] 20 mg PO DAILY #30 tab Metoprolol Succinate [Toprol Xl] 100 mg PO BID #60 tab.er.24h Diet: Low Sodium (Low fat, Diabetic diet) Activity Restrictions: Activity as Tolerated Shower Restrictions: No Driving Restrictions: No Instruction Topics: Apixaban oral tablets, Ceftriaxone injection, Azithromycin tablets, Metoprolol tablets, Heart Failure, Pneumonia Health Concerns: You were admitted to treat shortness of breath and we found you had a pneumonia and congestive heart failure plus rapid Afib. You have finished the course of antibiotics for the pneumonia. You are now on several new heart medicines, and your Lisinopril dose was decreased. The new prescriptions were electronically sent to [facility] and also paper prescriptions of these were faxed to the [place]. You may resume your diabetic medicines and any other medicines you took before this hospitalization. You need to stay on a low salt diet and continue on your Diabetic diet. You need further work-up with a Business Loan Processor, which will presumably will be at the [place]. Once all the cardiac evaluation and management is done, it is advised that you attend Cardiac rehab and CHF classes, which we have here, at the [facility] Your Business Loan Processor or Primary doctor need to refer you to start that. Plan of Treatment: As above. Care Goals: Improvement in symptoms and stabilization are the goals. Assessment: The patient understands and is agreeable with the plan. Additional Instructions or Follow Up instructions: If you have new or worsening symptoms, call your PCP or Business Loan Processor for advice or come to the ER. No Smoking: If you smoke, Please STOP! Call for help. Follow-up with: DANISH DIAZ MD [Physician No Access] -
--- NOTE | 2020-07-08 13:19 | DISCHARGE SUMMARY ---
Discharge Summary Admit Date: 08/04/20 Discharge Date: 07/08/20 Discharging Provider: Dr Mercy Mckenzie Primary Care Provider: Dr Jewels Aguero Code Status: Attempt Resuscitation Condition at Discharge: Stable Discharge Disposition: 01 Home, Self Care - HPI History of Present Illness: This is a 74 white male who goes to the [place] for his care, has a history of paroxysmal A. fib which was first found when he had a colonoscopy several years ago, and he was then placed in Observation here, an Echo was normal, troponins were normal and he converted to sinus rhythm. He was noted to be snoring and advised to have a sleep study. Subsequently he has been diagnosed with sleep apnea and does use a CPAP. He also has hypertension, type 2 diabetes, osteoarthritis, GERD, elevated cholesterol. He came to urgent care today describing 10 days of slowly worsening shortness of breath with exertion then orthopnea and they sent him to the ER where he was found to have A. fib with rapid ventricular rate of 130 and CHF by exam and on chest x-ray. Chest x-ray was also read as possible pneumonia. Patient is being admitted to the ICU for management of A. fib with RVR, with an IV diltiazem drip and for diuretics and antibiotics - HOSPITAL COURSE Hospital Course: (1) Atrial fibrillation with RVR He remained tachycardic with heart rates in the 130s and up to 140s with exertion. TSH and troponins were unremarkable. An Echo showed a new cardiomyopathy. Cardizem was weaned to off and we started and increased his Metoprolol to 100 mg twice daily. We needed to add digoxin daily. His Dig dose was monitored. At discharge, he was to take Dig every other day. We started Eliquis and he was discharged on this. (2) Acute HFrEF (heart failure with reduced ejection fraction) The Echocardiogram report has revealed an ejection fraction of 35%. There was pulmonary vascular congestion and he reported orthopnea and dyspnea with exertion and BNP was elevated. He received IV Lasix then was switched to oral diuretics and he was started on Aldactone and Lisinopril. He was on Metoprolol Tartrate pre-admission, but was discharged on Metoprolol Succinate at discharge. He needs referral to a Strategic Account Executive for a stress test, when no pulmonary symptoms, and then for further med adjustments. After that, he qualifies for attending CHF Education and Cardiac Rehab classes here at the [facility]; he will need a referral. (3) Community acquired pneumonia He was started on antibiotics and we discharged him on oral antibiotics to complete 5 days of therapy. (4) Type 2 diabetes mellitus His blood glu was elevated and we had him on Lantus and Reg sliding scale Insulin. His Actos will be discontinued at discharge given the new diagnosis of heart failure. Continued carb controlled diet was advised. (5) Hypertension His blood pressure was elevated with systolic in the 140s to 150s, which was treated with increased metoprolol and his lisinopril. (6) GIANFRANCO on CPAP Stable. Continued on home CPAP. (7) BPH (benign prostatic hyperplasia) Stable. Continued on home medications. - ALLERGIES Allergies/Adverse Reactions: Allergies Allergy/AdvReac Type Severity Reaction Status Date / Time No Known Drug Allergies Allergy Verified 07/04/20 13:35 - MEDICATIONS Home Medications: Ambulatory Orders Medication Instructions Recorded Confirmed Aspirin Chewable [[facility] Saji 81 mg PO DAILY 11/14/17 07/04/20 Aspirin] Finasteride [Proscar] 5 mg PO 209911/14/17 07/04/20 Glipizide 5 mg PO DAILY 11/14/17 07/04/20 Lovastatin 40 mg PO 209911/14/17 07/04/20 Metformin HCl 1,000 mg PO BID 11/14/17 07/04/20 Tamsulosin [Flomax] 0.4 mg PO DAILY 11/14/17 07/04/20 Pioglitazone HCl [Actos] 30 mg PO DAILY 10/24/18 07/04/20 Apixaban [Eliquis] 5 mg PO BID #60 tablet 07/08/20 Furosemide 20 mg PO DAILY #30 tablet 07/08/20 Metoprolol Succinate [Toprol Xl] 100 mg PO BID #60 tab.er.24h 07/08/20 Spironolactone [Aldactone] 25 mg PO DAILY #30 tablet 07/08/20 lisinopriL [Lisinopril] 20 mg PO DAILY #30 tab 07/08/20 - PHYSICAL EXAM AT DISCHARGE General Appearance: positive: No acute distress, Alert Eyes Bilateral: positive: Normal inspection, EOMI ENT: positive: ENT inspection nml, No signs of dehydration Neck: positive: Nml inspection, No JVD Respiratory: positive: No respiratory distress, Breath sounds nml Cardiovascular: positive: Regular rate & rhythm, No murmur Abdomen: positive: Non-tender, No distention Skin: positive: Warm, Dry Extremities: positive: Non-tender, No pedal edema Neurologic/Psychiatric: positive: Oriented x3, Motor nml - LABS Result Diagrams: 07/08/20 05:25 07/08/20 05:25 - DIAGNOSTIC IMAGING Diagnostic Imaging Results: Final report reviewed - FOLLOW UP Follow Up: [facility] needs [facility] mto a Strategic Account Executive. - TIME SPENT Time Spent in Discharge (Minutes): 35
== END 2020-07-08 14:45 | disposition home or self-care (01) | DRG 291 ==
LOC: ED 13:26 → MS3 15:17 → ICU 18:26 → MS2 07-06 19:14
PROVIDERS: ADMIT Internal Medicine; ATTEND Internal Medicine
DX: I11.0 Hypertensive heart disease with heart failure (principal); I50.21 Acute systolic (congestive) heart failure; J18.9 Pneumonia, unspecified organism; I48.0 Paroxysmal atrial fibrillation; E11.65 Type 2 diabetes mellitus with hyperglycemia; G47.33 Obstructive sleep apnea (adult) (pediatric); K21.9 Gastro-esophageal reflux disease without esophagitis; E78.5 Hyperlipidemia, unspecified; M19.90 Unspecified osteoarthritis, unspecified site; N40.0 Benign prostatic hyperplasia without lower urinary tract symptoms; E66.9 Obesity, unspecified; Z20.828 Contact with and (suspected) exposure to other viral communicable diseases; Z68.36 Body mass index [BMI] 36.0-36.9, adult; Z79.84 Long term (current) use of oral hypoglycemic drugs; Z79.82 Long term (current) use of aspirin; Z79.899 Other long term (current) drug therapy
CPT/HCPCS: 36415; 71045; 71046; 80048; 80053; 81001; 83036; 83690; 83735; 83880; 84100; 84443; 84484; 85025; 85610; 87040; 87070; 87077; 87150; 87181; 87205; 87635; 93005; 93306; 94761; 96374; 96375; 99284; 99285; A9270; J1815; 81003; 87086

== ENCOUNTER → 2020-07-04 | Outpatient (CLI) | payer OTHER ==
--- NOTE | 2020-07-04 12:31 | XRAY Report ---
PROCEDURE: Chest 2 View X-Ray INDICATIONS: SHORTNESS OF BREATH TECHNIQUE: 2 view(s) of the chest. COMPARISON: None. FINDINGS: Surgical changes and devices: None. Lungs and pleura: No pleural effusions or pneumothorax. Prominent pulmonary vasculature markings jessa aterally with a central predominance. Small bibasilar airspace opacities. Suspect small bilateral ple ural effusions. No pneumothorax. Mediastinum: Mediastinal contours are within normal limits. Heart size appears prominent. Bones and chest wall: No suspicious bony abnormalities. Soft tissues appear unremarkable. IMPRESSION: Suspect fluid overload/CHF and bilateral pleural effusions with compressive atelectasis. Reviewed by: Walt Bonner MD on 07/04/2020 12:29 PM PDT Approved by: Walt Bonner MD on 07/04/2020 12:29 PM PDT Station ID: [id number]
== END ==
LOC: DI.S 07:00
PROVIDERS: ATTEND Physician Assistant Medical
DX: R91.8 Other nonspecific abnormal finding of lung field (principal)

== ENCOUNTER 2020-08-16 14:58 | Observation (INO) | payer OTHER ==
--- NOTE | 2020-08-16 15:29 | ED Physician Documentation ---
History of Present Illness - Stated complaint Stated Complaint: HIGH HEART RATE - Chief complaint Chief Complaint: Cardiac - History obtained from History obtained from: Patient - History of Present Illness Timing: Prior to arrival - Additonal information Additional information: 74-year-old male presents to the emergency department for evaluation of elevated heart rate, weakness and fatigue. This gentleman has a hx of atrial fibrillation and is on Eliquis. He was hospitalized for concerns of heart failure/atrial fib at the end of June 2020. Patient states that for much of the last week he has simply been fatigued and tired with any activity. He denies that he has any chest pain with activity. He denies increase in baselien dyspnea. however he has also noticed that his heart rate has been consistently greater than 130. He denies any cough or fevers. He states that he has been having some intermittent diarrhea for much of the last month. No dysuria, urgency or frequency. He did recently travel via airplane to [place]. He denies unilateral leg swelling or calf pain tenderness. Review of Systems Constitutional: reports: Fatigue. denies: Fever, Chills, Myalgias, Sweats Eyes: reports: Reviewed and negative Ears: reports: Reviewed and negative Nose: reports: Reviewed and negative Throat: reports: Reviewed and negative Cardiac: reports: Palpitations. denies: Chest pain / pressure, Pedal edema, Calf pain Respiratory: reports: Cough, Hemoptysis, Wheezing. denies: Dyspnea GI: reports: Diarrhea. denies: Abdominal Pain, Abdominal Swelling, Nausea, Vomiting : denies: Dysuria, Frequency, Hesitancy Skin: denies: Rash, Lesions Musculoskeletal: reports: Reviewed and negative PD PAST MEDICAL HISTORY - Past Medical History Cardiovascular: Hypertension, High cholesterol Respiratory: None Endocrine/Autoimmune: Type 2 diabetes GI: GERD Psych: None Musculoskeletal: Osteoarthritis, Chronic back pain - Past Surgical History Past Surgical History: Yes General: Colonoscopy - Present Medications Home Medications: Ambulatory Orders Medication Instructions Recorded Confirmed Metformin HCl 1,000 mg PO BID 11/14/17 08/16/20 Apixaban [Eliquis] 5 mg PO BID #60 tablet 07/08/20 08/16/20 Spironolactone [Aldactone] 25 mg PO DAILY #30 tablet 07/08/20 08/16/20 Alfuzosin HCl [Uroxatral] 10 mg PO HS 08/16/20 08/16/20 Empagliflozin [Jardiance] 25 mg PO DAILY 08/16/20 08/16/20 Finasteride [Proscar] 5 mg PO DAILY 08/16/20 08/16/20 Furosemide 40 mg PO DAILY 08/16/20 08/16/20 Glimepiride [Amaryl] 2 mg PO BID 08/16/20 08/16/20 Metoprolol Tartrate [Lopressor] 25 mg PO BID 08/16/20 08/16/20 Potassium Chloride 10 meq PO DAILY 08/16/20 08/16/20 Pravastatin [Pravachol] 40 mg ORAL HS 08/16/20 08/16/20 lisinopriL [Lisinopril] 40 mg PO DAILY 08/16/20 08/16/20 - Allergies Allergies/Adverse Reactions: Allergies Allergy/AdvReac Type Severity Reaction Status Date / Time No Known Drug Allergies Allergy Verified 07/04/20 13:35 - Social History Does the pt smoke?: Yes Smoking Status: Former smoker Does the pt drink ETOH?: No Does the pt have substance abuse?: No - Immunizations Immunizations are current?: No PD ED PE EXPANDED - General General: Alert, No acute distress - HEENT HEENT: Atraumatic, PERRL - Neck Neck: Supple w/out meningeal sx, No tenderness - Cardiac Cardiac: Irregularly irregular, Radial strong equal, Pedal strong equal, Cap refill < 2 sec. No: Murmur Present - Respiratory Respiratory: Clear to ausultation jessa. No: Distress, Labored - Abdomen Abdomen: Normal Bowel sounds. No: Tender to palpation, Rebound, Mass - Derm Derm: Normal color. No: Rash - Extremities Extremities: Normal. No: Pedal edema bilateral, Right calf TTP/cord, Left calf TTP/cord - Neuro Neuro: Alert and Oriented X 3, CNII-XII intact, Normal speech - GCS Eye Opening: Spontaneous Motor: Obeys Commands Verbal: Oriented Total: 15 Results - Vitals Vitals: Vital Signs - 24 hr 08/16/20 08/16/20 08/16/20 15:13 15:45 15:55 Temperature 36.8 C 36.3 C L Heart Rate 130 H 95 82 Respiratory 20 20 16 Rate Blood Pressure 138/84 H 92/53 L 102/63 O2 Saturation 100 99 100 08/16/20 08/16/20 16:22 16:44 Temperature 36.6 C Heart Rate 118 H 132 H Respiratory 18 22 Rate Blood Pressure 103/81 H 96/60 O2 Saturation 100 100 Oxygen O2 Source Room air - EKG (time done) 1511 Rate: Rate (enter#) (109) Rhythm: Atrial fibrillation Waucoma: Normal Ischemia: Normal ST segments Compare to prior EKG: Unchanged from prior EKG Computer interpretation: Agree with computer - Labs Labs: Laboratory Tests 08/16/20 08/16/20 08/16/20 15:35 15:40 15:40 WBC 5.8 RBC 3.75 L Hgb 11.6 L Hct 35.3 L MCV 94.1 H MCH 30.9 MCHC 32.9 RDW 13.3 Plt Count 188 MPV 10.2 Neut # (Auto) 3.1 Lymph # (Auto) 2.1 [place] # (Auto) 0.4 Eos # (Auto) 0.2 Baso # (Auto) 0.0 Absolute Nucleated RBC 0.00 Nucleated RBC % 0.0 Sodium 134 L Potassium 7.2 H* Chloride 104 Carbon Dioxide 18 L Anion Gap 12.0 BUN 95 H* Creatinine 2.3 H Estimated GFR (MDRD) 28 L Glucose 75 Calcium 9.8 Total Bilirubin 0.5 AST 19 ALT 17 Alkaline Phosphatase 46 Troponin I High Sens B-Natriuretic Peptide Total Protein 7.8 Albumin 4.2 Globulin 3.6 Albumin/Globulin Ratio 1.2 Lipase 59 H Urine Color Urine Clarity Urine pH Ur Specific Palms Urine Protein Urine Glucose (UA) Urine Ketones Urine Occult Blood Urine Nitrite Urine Bilirubin Urine Urobilinogen Ur Leukocyte Esterase Ur Microscopic Review Urine Culture Comments Nasal Adenovirus (PCR) NOT DETECTED Nasal B. parapertussis DNA (PCR) NOT DETECTED Nasal Coronavir 229E PCR NOT DETECTED Nasal Coronavir HKU1 PCR NOT DETECTED Nasal Coronavir NL63 PCR NOT DETECTED Nasal Coronavir OC43 PCR NOT DETECTED Nasal Enterovir/Rhinovir PCR NOT DETECTED Nasal Influenza B PCR NOT DETECTED Nasal Influenza A PCR NOT DETECTED Nasal Parainfluen 1 PCR NOT DETECTED Nasal Parainfluen 2 PCR NOT DETECTED Nasal Parainfluen 3 PCR NOT DETECTED Nasal Parainfluen 4 PCR NOT DETECTED Nasal RSV (PCR) NOT DETECTED Nasal B.pertussis DNA PCR NOT DETECTED Nasal C.pneumoniae (PCR) NOT DETECTED South Human Metapneumo PCR NOT DETECTED Nasal M.pneumoniae (PCR) NOT DETECTED Nasal SARS-CoV-2 (PCR) NOT DETECTED 08/16/20 08/16/20 08/16/20 15:40 15:40 16:30 WBC RBC Hgb Hct MCV MCH MCHC RDW Plt Count MPV Neut # (Auto) Lymph # (Auto) [place] # (Auto) Eos # (Auto) Baso # (Auto) Absolute Nucleated RBC Nucleated RBC % Sodium Potassium Chloride Carbon Dioxide Anion Gap BUN Creatinine Estimated GFR (MDRD) Glucose Calcium Total Bilirubin AST ALT Alkaline Phosphatase Troponin I High Sens 3.7 B-Natriuretic Peptide 54 Total Protein Albumin Globulin Albumin/Globulin Ratio Lipase Urine Color YELLOW Urine Clarity CLEAR Urine pH 5.0 Ur Specific Palms 1.020 Urine Protein NEGATIVE Urine Glucose (UA) 100 H Urine Ketones NEGATIVE Urine Occult Blood NEGATIVE Urine Nitrite NEGATIVE Urine Bilirubin NEGATIVE Urine Urobilinogen 0.2 (NORMAL) Ur Leukocyte Esterase NEGATIVE Ur Microscopic Review NOT INDICATED Urine Culture Comments NOT INDICATED Nasal Adenovirus (PCR) Nasal B. parapertussis DNA (PCR) Nasal Coronavir 229E PCR Nasal Coronavir HKU1 PCR Nasal Coronavir NL63 PCR Nasal Coronavir OC43 PCR Nasal Enterovir/Rhinovir PCR Nasal Influenza B PCR Nasal Influenza A PCR Nasal Parainfluen 1 PCR Nasal Parainfluen 2 PCR Nasal Parainfluen 3 PCR Nasal Parainfluen 4 PCR Nasal RSV (PCR) Nasal B.pertussis DNA PCR Nasal C.pneumoniae (PCR) South Human Metapneumo PCR Nasal M.pneumoniae (PCR) Nasal SARS-CoV-2 (PCR) - Rads (name of study) cxr Radiology: Final report received (No acute cardiopulmonary pathology) CT abd Radiology: Final report received (Normal appendix. No bowel obstruction. No free fluid or free air. No obstructing renal stone or hydronephrosis. Normal- appearing bilateral ureters. Gutierrez catheter in decompressed urinary bladder. Mildly enlarged prostate gland with mild mass-effect on floor of urinary bladder) PD MEDICAL DECISION MAKING - ED course Complexity details: reviewed results, re-evaluated patient, considered differential, d/w patient ED course: 74-year-old male presents the emergency department for evaluation of fatigue, weakness and elevated heart rates in the 130s at rest for much of the last week. He does have a pre-existing history of atrial fibrillation on Eliquis as well as heart failure. He was recently admitted to the hospital with heart failure in late June. On exam today we do note that he intermittently does have heart rates up into the 130s. However on labs it does appear that he has developed acute kidney injury. BUN is elevated at 95 and Creatinine 2.3. This is in casey contrast to recent hospitalization. His BNP has essentially normalized. Coupled with nearly 16 kg weight loss my suspicion is that this gentleman may be over diuresed and the kidney injury is prerenal. I have ordered 1 L of IV fluids. He was noted to have more than 300 residual after voiding in the emergency department therefore a Gutierrez was kept in place though I doubt that he is got an obstructive uropathy contributing to his kidney injury. CT abdoemn without acute findings. Potassium noted to be 7.2. A repeat potassium is pending. His EKG shows atrial fib without any peaked T waves. Repeat potassium is 6.3. Given lack of EKG changes will defer treatment at this time in favor of IVF 1730: This gentleman was presented to Dr. Bernardo Garcia for admission. Departure - Departure Disposition: ED Place in Observation Clinical Impression: KISHA (acute kidney injury) Atrial fibrillation Qualifiers: Atrial fibrillation type: unspecified chronic Qualified Code(s): I48.20 - Chronic atrial fibrillation, unspecified Discharge Date/Time: 08/16/20 18:18
[2020-08-16] MEDS ORDERED: diltiaZEM INJ 5 MG/ML VIAL IVP STA (15:31)
[2020-08-16 15:54] LABS: BASOPHILS % (AUTO) 0.5 %; EOSINOPHILS # (AUTO) 0.2 10^3/uL (0.0-0.7); EOSINOPHILS % (AUTO) 2.6 %; HGB - HEMOGLOBIN 11.6 g/dL (14.0-18.0); LYMPHOCYTES # (AUTO) 2.1 10^3/uL (1.5-3.5); MEAN CORPUSCULAR HEMOGLOBIN 30.9 pg (27.0-31.0); MEAN CORPUSCULAR HGB CONC 32.9 g/dL (32.0-36.0); MEAN CORPUSCULAR VOLUME 94.1 fL (80.0-94.0); MEAN PLATELET VOLUME 10.2 fL (7.4-11.4); MONOCYTES # (AUTO) 0.4 10^3/uL (0.0-1.0); MONOCYTES % (AUTO) 7.6 %; NEUTROPHILS # (AUTO) 3.1 10^3/uL (1.5-6.6); PLT - PLATELET COUNT 188 10^3/uL (130-450); RED BLOOD COUNT 3.75 10^6/uL (4.70-6.10); RED CELL DISTRIBUTION WIDTH 13.3 % (12.0-15.0); WHITE BLOOD COUNT 5.8 x10^3/uL (4.8-10.8)
[2020-08-16 16:11] LABS: ALBUMIN 4.2 g/dL (3.2-5.5); ALBUMIN/GLOBULIN RATIO 1.2 (1.0-2.2); BILIRUBIN,TOTAL 0.5 mg/dL (0.2-1.0); CALCIUM 9.8 mg/dL (8.5-10.3); CREATININE 2.3 mg/dL (0.6-1.2); TOTAL PROTEIN 7.8 g/dL (6.7-8.2)
[2020-08-16] MEDS ORDERED: SODIUM CHLORIDE 0.9% 1,000 ML IV STA (16:23)
--- NOTE | 2020-08-16 16:27 | XRAY Report ---
PROCEDURE: Chest 1 View X-Ray INDICATIONS: Chest Pain TECHNIQUE: One view of the chest was acquired. COMPARISON: 07/07/2020 FINDINGS: Surgical changes and devices: None. Lungs and pleura: No pleural effusions or pneumothorax. Lungs are clear. Mediastinum: Mediastinal contours appear normal. Heart size is normal. Bones and chest wall: No suspicious bony lesions. Overlying soft tissues appear unremarkable. IMPRESSION: No acute cardiopulmonary process demonstrated radiographically. Reviewed by: Ramon Zhu MD on 08/16/2020 4:26 PM [facility] Approved by: Ramon Zhu MD on 08/16/2020 4:26 PM PST Station ID: [id number]
[2020-08-16 16:54] LABS: C. PNEUMONIAE- RESP PCR PANEL NOT DETECTED
[2020-08-16 16:58] LABS: BILIRUBIN,URINE NEGATIVE (NEGATIVE); GLUCOSE, URINE (UA) 100 mg/dL (NEGATIVE); KETONES,URINE (UA) NEGATIVE (NEGATIVE); LEUKOCYTE ESTERASE, URINE NEGATIVE (NEGATIVE); NITRITE,URINE NEGATIVE (NEGATIVE); OCCULT BLOOD,URINE NEGATIVE (NEGATIVE); PROTEIN,URINE NEGATIVE (NEGATIVE); UROBILINOGEN,URINE 0.2 (NORMAL) E.U./dL (NORMAL)
[2020-08-16] MEDS ORDERED: LIDOCAINE 2% URO-JET 5 ML SYRINGE UR STA (17:00)
[2020-08-16 17:04] LABS: CLARITY,URINE CLEAR (CLEAR)
[2020-08-16] MEDS ORDERED: oxyCODONE 5 MG TABLET PO PRN (17:27)
[2020-08-16] MEDS ORDERED: SODIUM CHLORIDE FLUSH 0.9% 10 ML SYRINGE IVP PRN (17:27)
[2020-08-16] MEDS ORDERED: ACETAMINOPHEN 325 MG TABLET PO PRN (17:27)
[2020-08-16] MEDS ORDERED: ONDANSETRON ODT 4 MG TABLET TL PRN (17:27)
[2020-08-16] MEDS ORDERED: ONDANSETRON 4 MG/2 ML VIAL IVP PRN (17:27)
--- NOTE | 2020-08-16 17:40 | HISTORY & PHYSICAL EXAMINATION ---
Chief Complaint - Chief Complaint Chief Complaint: Weakness, fatigue, fast heart rate History of Present Illness - Admitted From Admitted From:: Home via emergency room, no EMS - History Obtained From Records Reviewed: [facility] History obtained from: Milagros Corrales and patient Exam Limitations: None - History of Present Illness HPI Comment/Other: Pleasant 74-year-old white male who was diagnosed with new onset A. fib as he was undergoing a colonoscopy in November 2017. At that time an echocardiogram had a normal ejection fraction. He is followed by the [place] [facility] in [place]. He was then admitted again in July 04, 2020 with progressive dyspnea on exertion, orthopnea to the point that he became short of breath at rest. This was going on for 10 days and he came to the emergency room here where he was found to be in atrial fibrillation with rapid ventricular response. His rate was controlled and he was found to have a new cardiomyopathy with an ejection fraction of 45 to 50%. He had mild tricuspid regurgitation. RVSP was 45 mmHg. He had severe right atrial enlargement, a moderate increase in the left atrial volume. With that diagnosis he was sent home on new prescriptions of spironolactone, Eliquis, Lasix, lisinopril and metoprolol. He was asked to follow-up with his primary care provider. He did not. He now returns to the emergency room because his heart rate continues to be elevated. He is very tired, feels as if he is losing strength and is very weak. He denies any chest pain, fevers, cough. He denies abdominal pain. Urgency, frequency, dysuria. He has been having intermittent diarrhea for the last month. No recent travel. He was evaluated by ROSELYN Corrales. He was afebrile at 36.8. Heart rate was 130. Blood pressure 138/84. Respirations 20. 100% saturation on room air. He had an irregularly irregular heart rate, no murmur. Clear lungs. Normal bowel sounds. No pedal edema. EKG and telemetry showed A. fib with RVR. And he has new renal failure with a potassium of 7.2, BUN 95, creatinine 2.3. Troponin is 3.7. BNP is 54. He is also lost 16 kg of weight from discharge to now. In the emergency room he had a post void residual of 300 cc and as such a Gutierrez was placed. He did receive diltiazem but nothing to lower the potassium. He is now placed in observation. He will receive IV fluids, treatment of his hyperkalemia. I spoke to the ER provider and the health self contained behavior unit teacher. [facility] [place] [facility] not [facility] and the patient can stay here. History - Past Medical History Cardiovascular: reports: Hypertension, High cholesterol Respiratory: reports: None, Sleep apnea (Diagnosed December 2017. Moderate.), CPAP use Neuro: reports: Peripheral neuropathy Endocrine/Autoimmune: reports: Type 2 diabetes GI: reports: GERD, Colon polyps : reports: None HEENT: reports: Chronic sinusitis Psych: reports: None Musculoskeletal: reports: Osteoarthritis, Chronic back pain Derm: reports: None MRSA Hx?: No - Past Surgical History General: reports: Colonoscopy - Family & Social History Family History Comment/Other: Mom at age 86 and was healthy. Dad at age 97-1/2 and was healthy. had prostate cancer. 5 brothers. 1 of a heart attack age 65. 4 brothers have diabetes. But they do not have heart disease, cancer, stroke, thyroid. 2 children are healthy Living arrangement: At home Living Situation: With spouse/s.o. Social History Notes: Born in [place]. Served in the [employer] and in [employer]. Served for about a year and was exposed to agent orange. He is on 60% disability because of the experience and has 30% disability on the basis of PTSD. He has another 30% disability based on erectile dysfunction. 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 He was to his first for 27 years but she was an alcoholic and the marriage ended unhappily. to his second of 16 years. 2 children with his first . One child lives in [place] and one lives in [place]. Started smoking at the age of 18. Smoked up to 2 packs/day and quit approximately 1982. He drank quite a bit with his first marriage. He stopped drinking around 1982. No history of withdrawals or alcoholic liver disease. No history of other recreational substance abuse - Substance History Use: Uses substance without health or social issues: NONE Abuse: Recurrent use of substance despite neg consequences: NONE Dependence: Experiences withdrawal or developed tolerances: NONE - POLST Patient has POLST: No POLST Status: Full Code Meds/Allgy - Home Medications Home Medications: Ambulatory Orders Medication Instructions Recorded Confirmed Metformin HCl 1,000 mg PO BID 11/14/17 08/16/20 Apixaban [Eliquis] 5 mg PO BID #60 tablet 07/08/20 08/16/20 Spironolactone [Aldactone] 25 mg PO DAILY #30 tablet 07/08/20 08/16/20 Alfuzosin HCl [Uroxatral] 10 mg PO HS 08/16/20 08/16/20 Empagliflozin [Jardiance] 25 mg PO DAILY 08/16/20 08/16/20 Finasteride [Proscar] 5 mg PO DAILY 08/16/20 08/16/20 Furosemide 40 mg PO DAILY 08/16/20 08/16/20 Glimepiride [Amaryl] 2 mg PO BID 08/16/20 08/16/20 Metoprolol Tartrate [Lopressor] 25 mg PO BID 08/16/20 08/16/20 Potassium Chloride 10 meq PO DAILY 08/16/20 08/16/20 Pravastatin [Pravachol] 40 mg ORAL HS 08/16/20 08/16/20 lisinopriL [Lisinopril] 40 mg PO DAILY 08/16/20 08/16/20 - Allergies Allergies/Adverse Reactions: Allergies Allergy/AdvReac Type Severity Reaction Status Date / Time No Known Drug Allergies Allergy Verified 07/04/20 13:35 Review of Systems - Constitutional Constitutional: reports: Fatigue, Malaise, Poor appetite, Weight loss - Eyes Eyes: denies: Pain, Irritation, Amaurosis, Blurred vision - Ears, Nose & Throat Ears, Nose & Throat: reports: Other (very dry mouthy). denies: Hearing loss, Hearing aids, Hoarseness - Cardiovascular Cariovascular: reports: Irregular heart rate, Palpitations, Decr. exercise tolerance. denies: Chest pain, Edema, Syncope, Exertional dyspnea - Respiratory Respiratory: reports: Cough (that does away after a few clearings of throat). denies: Sputum production, Wheezing, Snoring - Gastrointestinal Gastrointestinal: reports: Abdominal pain (constant in epigastrium with nausea), Abdominal distention, Diarrhea (more and more this last few weeks since meds), Change in bowel habits, Nausea, Reflux/heartburn, Bloating, Poor appetite. denies: Constipation, Rectal bleeding, Black stools, Bloody stools, Vomiting, Bile emesis, Coffee grounds emesis - Genitourinary Genitourinary: denies: Dysuria, Frequency, Urgency, Incontinence - Musculoskeletal Musculoskeletal: reports: Muscle pain (in neck and shoulders), Back pain (for years and worse), Muscle weakness (legs feel like they're going to give out) - Integumentary Integumentary: denies: Rash, Pruritis, Lesions, Dryness - Neurological Neurological: reports: General weakness. denies: Focal weakness, Headache, Dizziness, Memory problems, Pre-existing deficit, Abnormal gait - Psychiatric Psychiatric: denies: Depression, Anxiety, Suicidal - Endocrine Endocrine: denies: Polyuria, Polydypsia, Polyphagia - Hematologic/Lymphatic Hematologic/Lymphatic: reports: Bruising. denies: Anemia, Petechiae, Lymphadenopathy, Bleeding tendencies Prior Level of Functionality: Independent with activities of daily living. Drives a car. Pays bills. 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 Does not use any durable medical equipment at home. Exam - Vital Signs Reviewed Vital Signs: Yes Vital Signs: Vital Signs x48h Temp Pulse Resp BP Pulse Ox 08/16/20 16:44 132 H 22 96/60 100 08/16/20 16:22 36.6 C 118 H 18 103/81 H 100 08/16/20 15:55 82 16 102/63 100 08/16/20 15:45 36.3 C L 95 20 92/53 L 99 08/16/20 15:13 36.8 C 130 H 20 138/84 H 100 - Physical Exam General Appearance: positive: No acute distress, Alert Eyes Bilateral: positive: PERRL, EOMI ENT: positive: Dry mucous membranes (very dry) Neck: positive: No JVD. negative: Stiff neck Respiratory: positive: No respiratory distress. negative: Wheezes, Rales, Rhonc hi Cardiovascular: positive: Irregularly irregular, Tachycardia, Systolic murmur. negative: Gallop/S4, Friction rub Peripheral Pulses: positive: 1+ Abdomen: positive: Non-tender, No organomegaly, Nml bowel sounds, Other (mild distension and quiet bowel sounds). negative: Guarding, Rebound Skin: positive: Warm, Dry, Pallor, Other (tenting of forearm skin) Extremities: positive: Full ROM, No pedal edema Neurologic/Psychiatric: positive: Oriented x3, CN's nml (2-12), Motor nml Conclusion/Plan - Problem List (1) Prerenal azotemia Conclusion/Plan: iatrogenic. This unfortunate gentleman is in renal failure secondary to use of Aldactone, Lasix in a patient with a low ejection fraction and previous history of congestive heart failure. Unfortunately he has not had any follow-up lab work since his discharge in June. He is not due to be seen for labs until August 25. He says it is very difficult to get into the [facility] in [place] with all of this "Covid nonsense". Plan: Observation stay Stop medications IV fluids at 200 cc an hour Repeat labs at 10 PM tonight and 6 AM tomorrow Follow-up with his primary care provider. I explained to him that he needs to be followed up on numerous medications. Not only labs for his Lasix and Aldactone, but blood pressure for his lisinopril and metoprolol. And his new blood thinner needs to be reviewed. For instance he is about to have dental work on the and he did not realize that he may have to stop his blood thinner before that dental work. (2) Hyperkalemia Conclusion/Plan: As of now no treatment in the emergency room. Repeat potassium is pending. Depending on that he will get D50 with insulin. (3) Atrial fibrillation with RVR Conclusion/Plan: Rate lowering agents at home are metoprolol 25 p.o. twice daily. He is received 1 dose of diltiazem in the emergency room. Rate went back down into the 80s with this. He is now going back up again. Will give IV Lopressor since he is on p.o. Lopressor at home. Continue Eliquis. I have also given him patient instruction on the use of Eliquis. (4) Chronic HFrEF (heart failure with reduced ejection fraction) Conclusion/Plan: He will be getting brisk IV fluids for hydration. Will monitor for fluid overload. (5) Type 2 diabetes mellitus Conclusion/Plan: At home he is on Jardiance. Glucose is normal in the emergency room. Plan: Sliding scale insulin at this time. No p.o. meds until eating normally Qualifiers: Diabetes mellitus senior care insulin use: without senior care use Diabetes mellitus complication status: with neurologic complications Diabetes mellitus complication detail: with polyneuropathy Qualified Code(s): E11.42 - Type 2 diabetes mellitus with diabetic polyneuropathy (6) GIANFRANCO on CPAP Conclusion/Plan: May use on CPAP from home - Lab Results Lab results reviewed: Yes Fish Bones: 08/16/20 15:40 08/16/20 17:50 - Diagnostic Imaging Results Diagnostic Imaging Results: positive: Final report reviewed Diagnostic Imaging Results Comments: Chest x-ray without pleural effusions or pneumothorax. Lungs are clear. No acute cardiopulmonary process demonstrated radiographically. - EKG Results EKG Interpreted Independently: No EKG Comparison: Unchanged from prior EKG EKG Findings: Atrial flutter with diffusely low voltage. Core Measures - Anticipated LOS I expect patient to be DC'd or transferred within 96 hours.: Yes - DVT/VTE - Prophylaxis VTE/DVT Device ordered at admit?: Yes
--- NOTE | 2020-08-16 17:51 | CT Report ---
PROCEDURE: Abdomen/Pelvis WO INDICATIONS: KISHA TECHNIQUE: Noncontrast 5 mm thick sections acquired from the diaphragms to the symphysis. 5 mm coronal and sagi ttal reformats were then performed. For radiation dose reduction, the following was used: automated exposure control, adjustment of mA and/or kV according to patient size. COMPARISON: None. FINDINGS: Image quality: Excellent. ABDOMEN: Lung bases: Mild bibasilar dependent atelectasis is seen posteriorly. Heart size is normal. Atheroscl erotic calcifications are noted throughout coronary vessels. Solid organs: Liver and spleen are normal in size. Gallbladder is within normal limits Pancreas is normal in contours. No adrenal nodules. Kidneys are normal in size, without hydronephrosis or neph rolithiasis. Peritoneum and bowel: Unenhanced bowel loops demonstrate normal wall thickness and caliber. No free fluid or air. Small hiatal hernia is seen. Appendix is visualized in right lower quadrant and is no rmal in size and appearance. Nodes and vessels: No retroperitoneal or mesenteric adenopathy by size criteria. Aorta and inferior vena cava are normal in caliber. Moderate atherosclerotic calcifications are seen throughout abdomin al aorta. Miscellaneous: No ventral hernias. PELVIS: Genitourinary: Gutierrez catheter is seen in a decompressed urinary bladder. No gross bladder wall abnorm ality is seen. Prominent prostate gland with mild mass effect on floor of urinary bladder is noted. Miscellaneous: No inguinal hernias or adenopathy. Bones: No suspicious bony lesions. No vertebral body compression fractures. IMPRESSION: 1. Normal appendix. No bowel obstruction. No abnormal bowel wall thickening. No free fluid of free ai r. 2. No obstructing renal stone or hydronephrosis. Normal-appearing bilateral ureters. Gutierrez catheter i n decompressed urinary bladder. Mildly enlarged prostate gland with mild mass effect on floor of urin alberto bladder. 3. Bibasilar dependent atelectasis/scarring. 4. Moderate atherosclerotic disease. Reviewed by: Sravan Alanis MD on 08/16/2020 4:50 PM [facility] Approved by: Sravan Alanis MD on 08/16/2020 4:50 PM [facility] Station ID: [id number]
[2020-08-16] MEDS ORDERED: DEXTROSE 50% ABBOJECT 25 GM/50 ML SYRINGE IVP ONE (18:12)
[2020-08-16] MEDS ORDERED: INSULIN REGULAR HUMAN 300 UNIT/3 ML VIAL IVP ONE (18:12)
[2020-08-16] MEDS: METOPROLOL 5 MG/5 ML VIAL IVP SCH (18:28)
[2020-08-16] MEDS: SODIUM CHLORIDE 0.9% 1,000 ML IV SCH (18:29)
[2020-08-16] MEDS ORDERED: traZODone 50 MG TABLET PO SCH (21:08)
[2020-08-16] MEDS ORDERED: diltiaZEM INJ 5 MG/ML VIAL IVP ONE (21:12)
[2020-08-16 22:24] LABS: CREATININE 1.9 mg/dL (0.6-1.2)
[2020-08-17] MEDS: SODIUM CHLORIDE 0.9% 1,000 ML IV SCH ×3 (00:11→10:25)
[2020-08-17] MEDS: SODIUM CHLORIDE FLUSH 0.9% 10 ML SYRINGE IVP SCH ×2 (00:52→08:41)
[2020-08-17] MEDS: METOPROLOL 5 MG/5 ML VIAL IVP SCH ×3 (01:50→12:17)
[2020-08-17 05:56] LABS: CALCIUM 8.8 mg/dL (8.5-10.3); CREATININE 1.5 mg/dL (0.6-1.2)
[2020-08-17] MEDS: INSULIN ASPART 300 UNIT/3 ML PEN SUBQ SCH ×2 (07:57→12:20)
[2020-08-17] MEDS ORDERED: APIXABAN 5 MG TABLET PO SCH (09:00)
[2020-08-17 12:46] LABS: CALCIUM 8.7 mg/dL (8.5-10.3); CREATININE 1.4 mg/dL (0.6-1.2)
[2020-08-17 12:47] VITALS: BP 125/63
--- NOTE | 2020-08-17 14:33 | Discharge Plan ---
Discharge Plan Problem Reviewed?: Yes Disposition: Home, Self Care Condition: Good Diet: Cardiac Activity Restrictions: Activity as Tolerated Shower Restrictions: No Driving Restrictions: No Instruction Topics: Apixaban oral tablets, Heart Failure Meds Control, Heart Failure Tracking Weight Health Concerns: You came to the emergency room because of lack of appetite, severe fatigue, weakness. Sometimes he felt like her knees were going to be able to hold you up anymore. Your heart rate was also pounding. You already have a new diagnosis of congestive heart failure and was just discharged in June with new medications of Lasix, spironolactone, metoprolol, and Eliquis. While you did see your doctor via a telemedicine phone call, you did not get blood work. Your new medicines caused you to retain potassium and become very dehydrated. You had lost 16 kg of weight from June to now. In the emergency room you are having urinary retention from a large prostate and had to have a Gutierrez placed temporarily. Treatment consisted of a large bolus intravenously of high concentration glucose followed by insulin. This brought your potassium down to normal. You also received normal saline hydration. There is tremendously improved your kidney function. Normal BUN for you is 15. You came in at 95. By the time of discharge you were 54. We expect that to go back down to normal if you resume normal fluid intake of about a liter and a half of fluids a day. Creatinine is another measure of kidney function. Your baseline is 0.9. You came in at 2.3. You were 1.4 at discharge. Plan of Treatment: 1. I have already spoken to your [facility] clinic doctor's nurse. Danish Diaz is out of the office today. But they will be calling you to make an appointment with you soon as possible. I asked them to please do blood work every other week. 2. I have stopped spironolactone and Lasix. Depending on your weight, kidney function and how you feel with shortness of breath, Dr. Diaz will resume 1 or both of them. Please weigh yourself daily so she knows how much weight you are gaining or losing. Report that to her. Also let her know if you cannot sleep on your back or if you have ankle swelling. 3. I have also stopped metformin. When a diabetic takes Metformin in the face of kidney insufficiency, metformin can cause a severe reaction called lactic acidosis. I would prefer that you stop Metformin indefinitely. 4. You were having loose stool. We checked for C. difficile and that was negative. 5. Gutierrez was discontinued at the time of discharge. You have an enlarged prostate and you are on Proscar. Please follow-up with your urologist to make sure that your prostate is not contributing to some of your renal failure. 6. Please follow-up with a director of exhibits. Have Dr. Diaz intercede for you. You said that you have called the clinic 3 times and they have not called her back to make the appointment. 7. You are going to see a dental hygienist for getting your teeth cleaned. Do not take your Eliquis that morning and just take your Eliquis later in the afternoon. Care Goals: 1. To have your kidney function go back to normal 2. To stabilize your medication list in the face of congestive heart failure Assessment: Patient understands care goals and will follow through. Follow-Up Care: [facility] - Cardiac No Smoking: If you smoke, Please STOP! Call for help. Follow-up with: DANISH DIAZ MD [Primary Care Provider] -
--- NOTE | 2020-08-21 16:09 | PROVIDER PROGRESS NOTE ---
Progress Note August 21, 2020 4:02 PM This is a discharge note for patient. He was admitted August 16 and discharged August 17. Discharge diagnoses: 1. Prerenal azotemia 2. Dehydration 3. Hyperkalemia 4. Atrial fibrillation with RVR 5. Heart failure with reduced ejection fraction, chronic 6. Type 2 diabetes mellitus. 7. Obstructive sleep apnea on CPAP Please refer to the detailed history and physical on this patient. He was admitted less than 24 hours ago. He is a gentleman that was admitted July 04 and discharged on new medications. These medications were for A. fib with RVR as well as systolic heart failure. They were spironolactone, Eliquis, Lasix, lisinopril, and metoprolol. While he did follow-up with his primary care pro vider via a telemedicine visit over the phone. He did not get his lab work done. He presented with severe dehydration. He was hydrated, had improvement in blood pressure appetite. Admission BUN was 80 and at discharge was 54. Admission creatinine was 1.9 it was 1.4 at discharge. He is discharged on lisinopril and metoprolol but I am asking him to stop his diuretics. He was also on Metformin I have asked him to stop that indefinitely. I told him that I would prefer him not to be on Metformin and to control his sugars with Jardiance, glimepiride first. I have asked him to please see his primary care provider at the [facility] in [place]. I have already spoken to the [facility] and let them know to call him, and check his blood work every other week. At their discretion they can resume one of the diuretics in the face of chronic systolic heart failure. This should also check his glucose to make sure that is under control. I do not recommend the Metformin because I can give you severe lactic acidosis. Discharge exam had him with a blood pressure of 125/63. Heart rate 94 and irregular. Respirations 18 and unlabored. 100% on room air. He is 5 feet 11 inches tall, weighs 109.49 kg. He is an exceedingly pleasant, alert oriented gentleman who is able to get out of bed, ambulating in the room to go to the bathroom without any assistance or ataxia. No JVD. A controlled irregular rate and rhythm. And abdomen that is nontender with normal bowel sounds. Extremities without edema.
== END 2020-08-17 15:26 | disposition home or self-care (01) ==
LOC: ED 14:58 → MS2 17:27
PROVIDERS: ADMIT Specialist; ATTEND Specialist
DX: N19 Unspecified kidney failure (principal); E86.0 Dehydration; T50.0X5A Adverse effect of mineralocorticoids and their antagonists, initial encounter; E87.5 Hyperkalemia; I48.20 Chronic atrial fibrillation, unspecified; Z79.01 Long term (current) use of anticoagulants; I11.0 Hypertensive heart disease with heart failure; I50.22 Chronic systolic (congestive) heart failure; E11.42 Type 2 diabetes mellitus with diabetic polyneuropathy; Z79.84 Long term (current) use of oral hypoglycemic drugs; G47.33 Obstructive sleep apnea (adult) (pediatric); N40.1 Benign prostatic hyperplasia with lower urinary tract symptoms; R33.8 Other retention of urine; R19.7 Diarrhea, unspecified; Z87.891 Personal history of nicotine dependence
CPT/HCPCS: 0202U; 36415; 51702; 51798; 71045; 74176; 80048; 80053; 81003; 83690; 83880; 84132; 84484; 85025; 93005; 96361; 96374; 96375; 96376; 99284; 99285; A9270; G0378; J1815; 81001; 87086

== ENCOUNTER 2020-09-10 10:06 | Outpatient (CLI) | payer OTHER | END 2020-09-10 10:07 | disposition critical access hospital (66) | LOC: EMS 10:06 | PROVIDERS: ATTEND Surgery | DX: R06.00 Dyspnea, unspecified (principal); R53.1 Weakness; K59.00 Constipation, unspecified | CPT/HCPCS: A0425; A0429 ==

== ENCOUNTER 2020-09-10 10:20 | Inpatient (IN) | payer OTHER ==
--- NOTE | 2020-09-10 10:35 | ED Physician Documentation ---
PD HPI DYSPNEA - Stated complaint Stated Complaint: WEAKNESS - Chief complaint Chief Complaint: General - History obtained from History obtained from: Patient, EMS - History of Present Illness Timing - onset: How many days ago (weakness progressive over the last several days with diffuse myalgias as well. Minimal cough. No fevers. He did test Covid positive here. His lungs are clear. Sats are 100%. Chest x-ray is clear. He has general weakness with difficulty even lifting his legs up to get out of bed. dyspnea.) Timing - onset during: Light activity (He was having difficulty getting out of bed progressively in last night and today had fallen 3 times with his legs "giving out". He is having some shortness of breath with minimal cough. No incontinence.) Timing - details: Gradual onset (over 3 days, with weakness arms and legs symmetrically (maybe arms noted first). Feeling muscle aches as well.) Inciting event(s): URI (mild congestion and cough. No fevers.) Improved by: Rest Worsened by: Exertion (mostly fatigue and general weakness, with dyspnea as part of it as well.) Associated symptoms: Cough (mild), Other (general weakness). No: Fever, Chest pain / discomfort, Bilateral edema Recently seen: Emergency Dept, Admitted (few weeks ago for renal insufficiency, elevated potassium, and previous to that for heart failure.) Review of Systems Constitutional: reports: Myalgias (diffusely), Fatigue (for several days). denies: Fever, Chills Nose: denies: Rhinorrhea / runny nose, Congestion Throat: denies: Sore throat Cardiac: reports: Palpitations (history of atrial fib, feeling it irregular). denies: Chest pain / pressure Respiratory: reports: Dyspnea (with activity), Cough (mild). denies: Wheezing GI: denies: Abdominal Pain, Nausea, Vomiting, Diarrhea Musculoskeletal: reports: Neck pain (mild with ROM of the neck.). denies: Back pain Neurologic: reports: Generalized weakness. denies: Focal weakness, Numbness, Near syncope, Altered mental status, Headache Psychiatric: denies: Depressed, Anxiety Endocrine: reports: Easy bruising / bleeding Immunocompromised: denies: Immunocompromised PD PAST MEDICAL HISTORY - Past Medical History Cardiovascular: Hypertension, High cholesterol, Atrial fibrillation Respiratory: None, Sleep apnea (Diagnosed December 2017. Moderate.), CPAP use Neuro: Peripheral neuropathy Endocrine/Autoimmune: Type 2 diabetes GI: GERD, Colon polyps : None HEENT: Chronic sinusitis Psych: None Musculoskeletal: Osteoarthritis, Chronic back pain Derm: None - Past Surgical History Past Surgical History: Yes General: Colonoscopy - Present Medications Home Medications: Ambulatory Orders Medication Instructions Recorded Confirmed Apixaban [Eliquis] 5 mg PO BID #60 tablet 07/08/20 08/16/20 Alfuzosin HCl [Uroxatral] 10 mg PO DAILY 08/16/20 08/16/20 Empagliflozin [Jardiance] 25 mg PO DAILY 08/16/20 08/16/20 Finasteride [Proscar] 5 mg PO DAILY 08/16/20 08/16/20 Glimepiride [Amaryl] 2 mg PO BID 08/16/20 08/16/20 Metoprolol Tartrate [Lopressor] 25 mg PO BID 08/16/20 08/16/20 Potassium Chloride 10 meq PO DAILY 08/16/20 08/16/20 lisinopriL [Lisinopril] 20 mg PO DAILY 08/16/20 08/16/20 Multivitamin 1 tab PO DAILY 08/17/20 08/17/20 [place]-3 Acid Ethyl Esters [Lovaza] 3 gm PO DAILY 08/17/20 08/17/20 traZODone [Desyrel] 50 - 150 mg PO QPM 08/17/20 08/17/20 Pravastatin [Pravachol] 40 mg PO QPM 09/10/20 - Allergies Allergies/Adverse Reactions: Allergies Allergy/AdvReac Type Severity Reaction Status Date / Time No Known Drug Allergies Allergy Verified 07/04/20 13:35 - Social History Does the pt smoke?: Yes Smoking Status: Former smoker Does the pt drink ETOH?: No Does the pt have substance abuse?: No - Immunizations Immunizations are current?: No - POLST Patient has POLST: No POLST Status: Full Code PD ED PE NORMAL - Vitals Vital signs reviewed: Yes - General General: Alert and oriented X 3, No acute distress, Well developed/nourished - HEENT HEENT: Ears normal, Moist mucous membranes, Pharynx benign - Neck Neck: Supple, no meningeal sign, No adenopathy, No JVD - Cardiac Cardiac: No murmur. No: RRR (tachycardic with irregularlity) - Respiratory Respiratory: No respiratory distress, Clear bilaterally - Abdomen Abdomen: Normal bowel sounds, Soft, Non tender, Non distended - Male Male : Deferred - Rectal Rectal: Deferred - Back Back: No CVA TTP - Derm Derm: Normal color, Warm and dry - Extremities Extremities: Normal ROM s pain, No edema, No calf tenderness / cord - Neuro Neuro: Alert and oriented X 3, Normal speech, Other (normal reflexes at antecub and knees. Normal sharp/dull discrimination in all extremities. Normal sensation perineal area. General weakness, with difficulty lifint legs up. Much effort to pull himself up to sitting. Can hold arms out well. Good educational interpreter though slightly shaky/weak. ) Eye Opening: Spontaneous Motor: Obeys Commands Verbal: Oriented GCS Score: 15 Results - Vitals Vitals: Vital Signs - 24 hr 09/10/20 09/10/20 09/10/20 10:27 10:33 11:33 Temperature 35.5 C L 36.1 C L Heart Rate 119 H 127 H 129 H Respiratory 29 H 25 H 24 Rate Blood Pressure 119/73 123/72 133/83 H O2 Saturation 100 100 100 09/10/20 09/10/20 09/10/20 12:09 12:39 12:59 Temperature Heart Rate 111 H 132 H 128 H Respiratory 30 H 23 26 H Rate Blood Pressure 117/70 105/54 L 114/66 O2 Saturation 99 100 99 09/10/20 09/10/20 09/10/20 13:03 13:06 13:09 Temperature Heart Rate 121 H 114 H 108 H Respiratory 18 19 22 Rate Blood Pressure 107/72 104/62 110/70 O2 Saturation 96 98 100 09/10/20 09/10/20 09/10/20 13:14 13:29 13:45 Temperature Heart Rate 97 101 H 105 H Respiratory 16 21 Rate Blood Pressure 100/65 128/74 123/72 O2 Saturation 95 100 100 Oxygen O2 Source Room air - EKG (time done) 10:38 Rate: Rate (enter#) (131) Rhythm: Atrial fibrillation Ischemia: Normal ST segments. No: ST elevation c/w ischemia, ST depression - Labs Labs: Laboratory Tests 09/10/20 09/10/20 09/10/20 11:00 11:16 11:16 WBC 3.7 L RBC 3.64 L Hgb 11.5 L Hct 33.4 L MCV 91.8 MCH 31.6 H MCHC 34.4 RDW 14.7 Plt Count 170 MPV 9.8 Neut # (Auto) 2.1 Lymph # (Auto) 1.2 L Alpine # (Auto) 0.5 Eos # (Auto) 0.0 Baso # (Auto) 0.0 Absolute Nucleated RBC 0.00 Nucleated RBC % 0.0 PT 16.7 H INR 1.5 H APTT 30.7 Sodium Potassium Chloride Carbon Dioxide Anion Gap BUN Creatinine Estimated GFR (MDRD) Glucose Calcium Magnesium Total Bilirubin AST ALT Alkaline Phosphatase Total Creatine Kinase Troponin I High Sens C-Reactive Protein B-Natriuretic Peptide Total Protein Albumin Globulin Albumin/Globulin Ratio Lipase Nasal Adenovirus (PCR) NOT DETECTED Nasal B. parapertussis DNA (PCR) NOT DETECTED Nasal Coronavir 229E PCR NOT DETECTED Nasal Coronavir HKU1 PCR NOT DETECTED Nasal Coronavir NL63 PCR NOT DETECTED Nasal Coronavir OC43 PCR NOT DETECTED Nasal Enterovir/Rhinovir PCR NOT DETECTED Nasal Influenza B PCR NOT DETECTED Nasal Influenza A PCR NOT DETECTED Nasal Parainfluen 1 PCR NOT DETECTED Nasal Parainfluen 2 PCR NOT DETECTED Nasal Parainfluen 3 PCR NOT DETECTED Nasal Parainfluen 4 PCR NOT DETECTED Nasal RSV (PCR) NOT DETECTED Nasal B.pertussis DNA PCR NOT DETECTED Nasal C.pneumoniae (PCR) NOT DETECTED [place] Human Metapneumo PCR NOT DETECTED Nasal M.pneumoniae (PCR) NOT DETECTED Nasal SARS-CoV-2 (PCR) DETECTED A Serum Ketones 09/10/20 09/10/20 09/10/20 11:16 11:16 11:16 WBC RBC Hgb Hct MCV MCH MCHC RDW Plt Count MPV Neut # (Auto) Lymph # (Auto) Alpine # (Auto) Eos # (Auto) Baso # (Auto) Absolute Nucleated RBC Nucleated RBC % PT INR APTT Sodium 135 Potassium 4.5 Chloride 100 L Carbon Dioxide 18 L Anion Gap 17.0 H BUN 29 H Creatinine 1.4 H Estimated GFR (MDRD) 50 L Glucose 135 H Calcium 9.0 Magnesium 2.2 Total Bilirubin 0.8 AST 24 ALT 17 Alkaline Phosphatase 45 Total Creatine Kinase 116 Troponin I High Sens 9.6 C-Reactive Protein 1.8 H B-Natriuretic Peptide 271 H Total Protein 7.5 Albumin 3.7 Globulin 3.8 Albumin/Globulin Ratio 1.0 Lipase 44 Nasal Adenovirus (PCR) Nasal B. parapertussis DNA (PCR) Nasal Coronavir 229E PCR Nasal Coronavir HKU1 PCR Nasal Coronavir NL63 PCR Nasal Coronavir OC43 PCR Nasal Enterovir/Rhinovir PCR Nasal Influenza B PCR Nasal Influenza A PCR Nasal Parainfluen 1 PCR Nasal Parainfluen 2 PCR Nasal Parainfluen 3 PCR Nasal Parainfluen 4 PCR Nasal RSV (PCR) Nasal B.pertussis DNA PCR Nasal C.pneumoniae (PCR) [place] Human Metapneumo PCR Nasal M.pneumoniae (PCR) Nasal SARS-CoV-2 (PCR) Serum Ketones NEGATIVE - Rads (name of study) chest xray Radiology: Prelim report reviewed, See rad report (no acute process) head CT Radiology: Prelim report reviewed (no acute process), See rad report cervical CT Radiology: Prelim report reviewed, See rad report (degenerative changes, most prominent anteriorly. no fractures. ) PD MEDICAL DECISION MAKING - ED course Complexity details: reviewed results (Chest x-ray is clear. Labs are fairly normal electrolytes and kidney function. CK is negative. CT of his neck and head are normal as he had complained of some neck pain. No sign of obvious canal stenosis.), re-evaluated patient (No signs of electrolyte disorder. His renal function is adequate. Does not appear in CHF. Chest x-ray is clear. His Covid test is positive.), considered differential (General weakness with muscle aches as well. Considerations of electrolyte disturbance with potassium or magnesium, possible myositis from statins, viral illness, less likely sounding spinal per se with normal sensation and reflexes. Autoimmune considerations suc h as Guillain-Jolly, etc), d/w patient, other (bedside commode with difficulty. Needed assistance. ) Departure - Departure Disposition: ED Place in Observation Clinical Impression: COVID-19, General weakness, Inability to walk, Atrial fibrillation with RVR Dyspnea Qualifiers: Dyspnea type: dyspnea on exertion Qualified Code(s): R06.00 - Dyspnea, unspecified Condition: Stable Record reviewed to determine appropriate education?: Yes
--- NOTE | 2020-09-10 11:06 | XRAY Report ---
PROCEDURE: Chest 1 View X-Ray INDICATIONS: Chest Pain TECHNIQUE: One view of the chest was acquired. COMPARISON: 08/16/2020, 07/07/2020, 07/04/2020. FINDINGS: Surgical changes and devices: None. Lungs and pleura: No pleural effusions or pneumothorax. Lungs are clear. Mediastinum: Mediastinal contours appear normal. Heart size is normal. Calcification is seen of th e aortic arch. Bones and chest wall: No suspicious bony lesions. Overlying soft tissues appear unremarkable. IMPRESSION: Portable chest within normal limits for age. Reviewed by: Robe Black MD on 09/10/2020 10:04 AM [facility] Approved by: Robe Black MD on 09/10/2020 10:04 AM [facility] Station ID: [id number]
[2020-09-10 11:25] LABS: BASOPHILS % (AUTO) 0.3 %; HGB - HEMOGLOBIN 11.5 g/dL (14.0-18.0); LYMPHOCYTES # (AUTO) 1.2 10^3/uL (1.5-3.5); LYMPHOCYTES % (AUTO) 31.5 %; MEAN CORPUSCULAR HEMOGLOBIN 31.6 pg (27.0-31.0); MEAN CORPUSCULAR HGB CONC 34.4 g/dL (32.0-36.0); MEAN CORPUSCULAR VOLUME 91.8 fL (80.0-94.0); MEAN PLATELET VOLUME 9.8 fL (7.4-11.4); MONOCYTES # (AUTO) 0.5 10^3/uL (0.0-1.0); MONOCYTES % (AUTO) 12.1 %; NEUTROPHILS # (AUTO) 2.1 10^3/uL (1.5-6.6); NEUTROPHILS % (AUTO) 55.8 %; PLT - PLATELET COUNT 170 10^3/uL (130-450); RED BLOOD COUNT 3.64 10^6/uL (4.70-6.10); RED CELL DISTRIBUTION WIDTH 14.7 % (12.0-15.0); WHITE BLOOD COUNT 3.7 x10^3/uL (4.8-10.8)
[2020-09-10 11:38] LABS: INR 1.5 (0.8-1.2); PT - PROTHROMBIN TIME 16.7 secs (9.9-12.6)
[2020-09-10 11:40] LABS: KETONES, SERUM (ACETEST) NEGATIVE (NEGATIVE)
[2020-09-10 11:45] LABS: ALBUMIN 3.7 g/dL (3.2-5.5); ALKALINE PHOSPHATASE 45 IU/L (42-121); ALT ALANINE AMINOTRANSFERASE 17 IU/L (10-60); AST ASPARTATE AMINOTRANSFERASE 24 IU/L (10-42); BILIRUBIN,TOTAL 0.8 mg/dL (0.2-1.0); BUN - BLOOD UREA NITROGEN 29 mg/dL (6-20); CARBON DIOXIDE - CO2 18 mmol/L (21-32); CHLORIDE 100 mmol/L (101-111); CK- CREATINE KINASE 116 IU/L (22-269); CREATININE 1.4 mg/dL (0.6-1.2); CRP - C-REACTIVE PROTEIN 1.8 mg/dL (0-1.0); GLUCOSE 135 mg/dL (70-100); LIPASE 44 U/L (22-51); MAGNESIUM 2.2 mg/dL (1.7-2.8); PARTIAL THROMBOPLASTIN TIME 30.7 secs (24.9-33.3); SODIUM 135 mmol/L (135-145); TOTAL PROTEIN 7.5 g/dL (6.7-8.2)
[2020-09-10] MEDS ORDERED: METOPROLOL 5 MG/5 ML VIAL IVP STA (12:19)
[2020-09-10 13:05] LABS: C. PNEUMONIAE- RESP PCR PANEL NOT DETECTED
--- NOTE | 2020-09-10 13:11 | CT Report ---
PROCEDURE: HEAD WO INDICATIONS: general weakness TECHNIQUE: Noncontrast 4.5 mm thick angled axial sections acquired from the foramen magnum to the vertex. For r adiation dose reduction, the following was used: automated exposure control, adjustment of mA and/or kV according to patient size. COMPARISON: Correlation is made with the accompanying cervical spine CT, 09/10/2020. Correlation is also made with the prior sinus CT examination, 06/24/2017. FINDINGS: Image quality: Excellent. CSF spaces: Basal cisterns are patent. No extra-axial fluid collections. Ventricles are normal in size and shape. Brain: No midline shift. No intracranial masses or hemorrhage. Malcolm-white matter interface is norm al. Skull and face: Calvarium and visualized facial bones are intact, without suspicious lesions. 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 An addit ional osteoma can be seen involving the outer table of the right frontal temporal region superiorly, as on series 7 image 27. Sinuses: There is moderate mucosal thickening within the left maxillary sinus. Minimal mucosal thick ening is seen elsewhere within the paranasal sinuses. No significant abnormal fluid can be seen withi n the mastoid air cells or within the middle ear cavities. IMPRESSION: No significant intracranial abnormality is seen. No intracranial hemorrhage is seen. 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 Improved paranasal sinus disease compared to 2017. Reviewed by: Robe Black MD on 09/10/2020 12:09 PM [facility] Approved by: Robe Black MD on 09/10/2020 12:09 PM [facility] Station ID: [id number]
--- NOTE | 2020-09-10 13:12 | CT Report ---
PROCEDURE: CERVICAL SPINE WO INDICATIONS: neck pain and general weakness TECHNIQUE: Noncontrast 3 mm thick sections acquired from the skull base to the T4 level. Sagittal and coronal r eformats were then constructed. For radiation dose reduction, the following was used: automated exp osure control, adjustment of mA and/or kV according to patient size. COMPARISON: Correlation is made with the accompanying head CT, 09/10/2020. FINDINGS: Image quality: Excellent. Bones: No fractures or dislocations. Visualized superior ribs are intact. Focal degenerative change can also be seen involving the C1-C2 interface anteriorly. Moderate to jackie re disc space narrowing is seen at the C4-C5, C5-C6, and C6-C7 levels. Minimal anterolisthesis is see n at C7-T1. Endplate irregularity and sclerosis are seen, which are most prominent inferiorly. At alva st partially bridging anterior osteophytes are seen C4-C7. Soft tissues: Prevertebral soft tissues are normal in thickness. No paravertebral hematomas. No ap ical pneumothoraces. Atherosclerotic calcification is seen. IMPRESSION: No acute fractures are seen. Degenerative changes are seen, which are most prominent inferiorly. Reviewed by: Robe Black MD on 09/10/2020 12:11 PM [facility] Approved by: Robe Black MD on 09/10/2020 12:11 PM [facility] Station ID: [id number]
[2020-09-10] MEDS ORDERED: SODIUM CHLORIDE FLUSH 0.9% 10 ML SYRINGE IVP PRN (13:54)
[2020-09-10] MEDS ORDERED: ACETAMINOPHEN 325 MG TABLET PO PRN (13:54)
[2020-09-10] MEDS ORDERED: ONDANSETRON 4 MG/2 ML VIAL IVP PRN (13:54)
[2020-09-10] MEDS ORDERED: D5NS W/20 MEQ KCL 1,000 ML IV SCH ×2 (14:00→17:45)
--- NOTE | 2020-09-10 15:10 | PHARMACY PROGRESS NOTE ---
- Best Possible Medication History Admit Date and Time: 09/10/20 1354 Processed by: Pharmacy Medication History completed: Yes Patient Interview: Pt unable to participate (COVID +) Secondary Source(s): Spouse/Significant other, Physician records, Insurance records As the person ultimately responsible for medication therapy, providers are able to order a medication from an existing home medication list in [facility] via the "Reconcile Routine" prior to Confirmation of that medication by community support professional. Such practice is discouraged except when the physician, in their clinical judgment, deems that a medical need exists for a medication without regard to previous use.
--- NOTE | 2020-09-10 16:34 | HISTORY & PHYSICAL EXAMINATION ---
DATE OF SERVICE: 09/10/2020 Physician: Mercy Mckenzie MD HISTORY OF PRESENT ILLNESS: This is a 74-year-old white male who has a history of diabetes, chronic atrial fibrillation, and cardiomyopathy. He was admitted here in June for shortness of breath and orthopnea and found to have CHF and pneumonia. Part of his workup included an echo that showed an EF of 35%. 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 He was discharged home on medications for cardiomyopathy including beta marielena, SANDRINE inhibitor, spironolactone, Lasix, and Eliquis. He returned approximately 6 weeks later with complaints of marked weakness and was found to have acute kidney injury related to his 2 diuretics. He was placed in observation and many of his medicines were adjusted and he received IV fluids. His Eliquis dose was changed. Since the June admission, he has been awaiting his first Cardiology evaluation at the [facility], which is pending in about 10-14 days. The patient presents to the ER now with complaints of weakness. He has a poor appetite, denies fever or cough, but he is more short of breath over the last few weeks, possibly after decreasing his diuretics. He is so weak that he fell twice last night after walking to the bathroom, when standing up from the toilet, but denies syncope withy those events, he can remember each entire event. He also fell 1 day ago, while ambulating in his house, and again denies syncope, he can remember the whole event. He was too weak to stand with the most recent fall and his could not lift him and he called an ambulance. In the ER, his workup has included labs that shows improvement of the prerenal azotemia, but not yet creatinine down to a normal baseline. His blood pressure was normal and chest x-ray was normal. He underwent a head CT and C-spine CT, which showed only arthritic changes. His labs showed he was positive for COVID. His heart rhythm is Afib with a rate of 110. He is afebrile. PAST MEDICAL HISTORY 1. 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 Chronic atrial fibrillation, on anticoagulant Eliquis 3. Recent acute kidney injury from overdiuresis. 4. DM, on oral agents. His Metformin was stopped when he developed KISHA. FAMILY HISTORY: Noncontributory. SOCIAL HISTORY: Lives with his . He is a nonsmoker. Denies alcohol abuse. REVIEW OF SYSTEMS: There has been no fever, he denies any cough or diarrhea. This is a new diagnosis of COVID for him on today's labs. A comprehensive review of systems was performed and the pertinent positives are listed, the rest are negative. PHYSICAL EXAMINATION GENERAL: Elderly white male who appears fatigued and needs to take deep breaths, is SOB when speaking. VITAL SIGNS: Blood pressure 128/74, heart rate of 101-105, in atrial fibrillation, afebrile at 36.1, and room air saturation 100%. HEENT: Unremarkable. NECK: Shows no JVD in a vertical position. CHEST: Clear. HEART: Tachycardic, irreg and cannot rule out a gallop. ABDOMEN: Soft, nontender. EXTREMITIES: No clubbing, cyanosis or edema. NEUROLOGIC: Normal deep tendon reflexes. Muscle strength is about 4/5 in the lower extremities (against gravity) and normal in the upper extremities. His gait and balance were not tested as he is in bed. LABORATORY DATA: Sodium 135, potassium 4.5, chloride 100, carbon dioxide 18, anion gap 17, BUN 29, creatinine 1.4 (this has improved from the last admission when his presenting BUN/creatinine were 80/1.9 and improved to 69/1.5 at discharge). Normal liver tests. Normal hs-troponin of 9.6. BNP 271, which is similar to what he had in June when it was between 200 and 300. White blood count 3.7, hemoglobin 11.5, platelet count normal at 170. INR 1.5, but this is not reliable in a patient on any DOAC. No urinalysis was done. The respiratory panel showed positive COVID, but no other viruses were positive. His serum ketones are negative. IMAGING: Chest x-ray showed no active cardiopulmonary disease and normal heart size. The cervical spine showed arthritis changes. The head CT showed no significant intracranial abnormality, no hemorrhage, benign bilateral bony osteomyelitis and improved paranasal sinus disease compared to many years ago. EKG: Atrial fibrillation with a rapid rate of 130. IMPRESSION/DIAGNOSES 1. Generalized weakness. 2. Fall at home, recurrent. 3. COVID positive infection. 4. Atrial fibrillation with rapid ventricular response. 5. Prerenal azotemia, probably still intravascular volume depleted. 6. Cardiomyopathy. 7. Diabetes Mellitus. PLAN: Place the patient in Observation status for evaluating the reason for his weakness and falls. I suspect it may be from the COVID viral infection and that his dyspnea is from that as well. Order infectious isolation. He does not have serious pulmonary findings to order Remdesivir or Decadron. Begin telemetry. Begin orthostatic vital sign checks. Give gentle hydration and hold the diuretics, carefully monitoring for recurrence of pulmonary edema. Obtain physical therapy consult regarding his weakness. Continue with his medications for rate control. If his blood pressure is "soft" then would plan to use digoxin instead of beta blockers. Continue his anticoagulation. Start a diabetic diet, fingerstick accuchecks and sliding scale insulin coverage. Will continue one of his oral diabetic meds. DEEP VENOUS THROMBOSIS PROPHYLAXIS: Anticoagulation and SCDs. CODE STATUS: FULL CODE. ATTESTATION: Patient is expected to be discharged or transferred to another facility within 96 hours: Yes. cc: Jewels Aguero MD TD: 09/10/2020 15:40 [facility]
[2020-09-10] MEDS: SODIUM CHLORIDE FLUSH 0.9% 10 ML SYRINGE IVP SCH ×2 (17:07→21:19)
[2020-09-10] MEDS: INSULIN ASPART 300 UNIT/3 ML PEN SUBQ SCH ×2 (17:07→21:15)
--- NOTE | 2020-09-10 18:16 | PROVIDER PROGRESS NOTE ---
Hospitalist Cross-cover Note - Cross-Cover Note Cross-Cover Note: At approximately 1630, I was notified by the charge nurse that the patient had an abnormal rhythm on telemetry. I was shown a rhythm strip with asystole for 4 sec, then 1 beat and then asystole again for 4 more sec. Vital signs had been immediately taken by his nurse and blood pressure was 104/56, heart rate recovered to A. fib at 120, room air saturation 95%, respiratory rate 16, and he was afebrile at 36.5 degrees C. I went in and examined the patient and spoke to him. He does not remember having any symptom as the asystole occurred. It was not witnessed since his nurse was not in the room with him when this happened, because he is in respiratory isolation, being a Covid positive patient. His chest is clear but but breath sounds are distant, he has increased respiratory rate and is more short of breath with speaking. Cardiac exam is unchanged, no murmur. Impression: Asystole. This may be related to 1 dose of IV beta-marielena however that was given many hours ago in the ER. This may be related to the new Covid infection affecting his heart. This may be the reason that he has had 3 falls. Plan: Transfer to the ICU, and he will now be Inpatient status. Critical status. Topical pacer patches to be put on. External temporary pacemaker set up in the room Cycle troponins. Recheck his EKG for acute changes. Continue respiratory isolation. Will contact Cardiology at a center with higher level of care available and have the patient transferred for potential permanent pacemaker insertion and to complete the cardiomyopathy work-up that has been needed since June 2020, [facility]. (I will be signing this out to the Network Security Analyst at 1900) CRITICAL CARE TIME SPENT: 40 min (Pt exam and discussion with pt, admission orders to ICU, phone discussion with his ).
[2020-09-10] MEDS ORDERED: ASPIRIN CHEW 81 MG TABLET PO STA (18:24)
[2020-09-10] MEDS ORDERED: FAMOTIDINE 20 MG/2 ML VIAL IVP SCH (21:00)
[2020-09-10] MEDS ORDERED: APIXABAN 5 MG TABLET PO SCH (21:00)
[2020-09-10] MEDS ORDERED: METOPROLOL TARTRATE 25 MG TABLET PO SCH (21:00)
[2020-09-10] MEDS ORDERED: ALFUZOSIN HCL 10 MG PO SCH (21:00)
[2020-09-10] MEDS ORDERED: GLIMEPIRIDE 2 MG TABLET PO SCH (21:00)
[2020-09-10] MEDS ORDERED: PRAVASTATIN 40 MG TABLET PO SCH (21:00)
[2020-09-10] MEDS ORDERED: traZODone 50 MG TABLET PO SCH (21:00)
--- NOTE | 2020-09-10 21:09 | Discharge Plan ---
Discharge Plan Problem Reviewed?: Yes Disposition: 02 Transfer Acute Care Hosp Condition: Stable No Smoking: If you smoke, Please STOP! Call for help. Follow-up with: DANIHS DIAZ MD [Primary Care Provider] -
--- NOTE | 2020-09-10 21:12 | DISCHARGE SUMMARY ---
"Discharge Summary Admit Date: 09/10/20 Discharge Date: 09/10/20 Discharging Provider: Ml Garcia MD Primary Care Provider: Jewels Aguero MD MA [facility] Code Status: Attempt Resuscitation Condition at Discharge: Stable Discharge Disposition: Transfer Acute Care Hosp Discharge Facility Name: [facility] - DIAGNOSES Discharge Diagnoses with Status of Each Condition: 1. Recurrent sinus pause 2. History of syncope prior to admission 3. Dilated cardiomyopathy since June 2020 4. Chronic atrial fibrillation 5. Acute on chronic kidney injury 6. Type 2 diabetes mellitus, without complication, not on long-term insulin 7. Benign prostatic hypertrophy with urinary retention - HPI History of Present Illness: This is a elder, elder elderly man who has chronic atrial fibrillation. He came in with uncontrolled atrial fibrillation in June of this year and was newly diagnosed with a dilated cardiomyopathy and ejection fraction in the mid 40s. He was started on SANDRINE inhibitor, beta-marielena, diuretics. He was already on Eliquis for chronic A. fib. He is followed by [facility] in [place]. While he did have one telemedicine visit after that hospitalization he was not physically seen by the provider and it was missed that we had asked him to please do labs on him. He then was readmitted August 16 and discharged August 21. His baseline creatinine is 0.9 he was found to have a creatinine of 2.3. His medications were stopped, adjusted, he was hydrated, and discharge creatinine was 1.4. With this discharge, I personally spoke to the [facility] nurse of the day. Carefully explained the need for careful follow-up in this patient. He does not have an appointment until September. He now returns with generalized weakness, and unexplained falls. He really cannot describe syncope. But he cannot tell you why he is falling. He was evaluated in the emergency room and had a normal blood pressure, mildly elevated heart rate at 101 205. Afebrile. Room air saturation at 100%. It was in a regular tachycardic rhythm. Clear lung exam. No JVD. BNP was mildly elevated. White cell count was normal. Chest x-ray without acute car diopulmonary disease. Normal heart size. CT of the head showed no significant intracranial abnormalities. EKG showed an A. fib rate of 130. Troponin #1 was 9.6, and troponin #2 was 11.1. - CONSULTS | PROCEDURES Procedures: 1. Covid PCR is positive 2. Chest x-ray has no pleural effusions, pneumothorax, lungs are clear. Heart is normal size. 3. Head CT has no significant intracranial abnormalities. No intracranial hemorrhage. Benign-appearing bilateral bony osteomas. Improved paranasal sinus disease compared to 2017. 4. Cervical spine CT without acute fractures. Degenerative changes seen. Last echocardiogram was done July 06, 2020 and compared to November 2017. In 2017 he had an ejection fraction of 55 to 60% with normal diastolic G. In June his underlying rhythm was A. fib. Ventricle was normal size. Ejection fraction 45 to 50%. Mild right ventricular enlargement. Mild tricuspid regurgitation. RVSP at 45 mmHg. These echocardiograms are read by [facility]. - HOSPITAL COURSE Hospital Course: The patient was placed in observation status to monitor him. See if his medications needed to be adjusted again. After being admitted, after couple of hours, the patient had 2 episodes of sinus pause. Each of them lasting for seconds. Because he is Covid positive, it took a while for the nurses to get into the room and evaluate him. But the time he got back into the room he was normotensive, and could not remember if anything it happened. Although his bradycardia could be due to the metoprolol dose he takes, the last metoprolol dose was in the emergency room several hours ago. At home he is on Lopressor 25 p.o. twice daily. We have asked for transfer to [facility]. He has been accepted by the swatch checker Dr. Henry. At discharge the patient is 36.5. Heart rate 100. Blood pressure 111/74. He is orthostatic. He drops to 90/57 and a heart rate of 130. Respirations are 12. He is 98% on room air. He is an alert oriented exceedingly pleasant white male. No JVD. Clear lungs. Irregular rate and rhythm. Benign abdomen. No pedal edema. - ALLERGIES Allergies/Adverse Reactions: Allergies Allergy/AdvReac Type Severity Reaction Status Date / Time No Known Drug Allergies Allergy Verified 07/04/20 13:35 - MEDICATIONS Home Medications: Ambulatory Orders Medication Instructions Recorded Confirmed Apixaban [Eliquis] 5 mg PO BID #60 tablet 07/08/20 09/10/20 Alfuzosin HCl [Uroxatral] 10 mg PO QPM 08/16/20 09/10/20 Empagliflozin [Jardiance] 25 mg PO DAILY 08/16/20 09/10/20 Finasteride [Proscar] 5 mg PO DAILY 08/16/20 09/10/20 Glimepiride [Amaryl] 2 mg PO BID 08/16/20 09/10/20 Metoprolol Tartrate [Lopressor] 25 mg PO BID 08/16/20 09/10/20 Potassium Chloride 10 meq PO DAILY 08/16/20 09/10/20 lisinopriL [Lisinopril] 20 mg PO DAILY 08/16/20 09/10/20 Multivitamin 1 tab PO DAILY 08/17/20 09/10/20 [place]-3 Acid Ethyl Esters [Lovaza] 3 gm PO DAILY 08/17/20 09/10/20 traZODone [Desyrel] 50 - 150 mg PO QPM 08/17/20 09/10/20 Pravastatin [Pravachol] 40 mg PO QPM 09/10/20 09/10/20 - LABS Result Diagrams: 09/10/20 11:16 09/10/20 11:16"
[2020-09-10 21:18] VITALS: BP 119/70
[2020-09-11] MEDS ORDERED: MULTIVITAMIN TABLET PO SCH (09:00)
== END 2020-09-10 22:50 | disposition short-term general hospital (02) | DRG 178 ==
LOC: EDUNIT# → ED 10:20 → MS3 13:54 → OBSVTOIN 17:40 → ICU 17:56
PROVIDERS: ADMIT Internal Medicine; ATTEND Specialist
DX: U07.1 COVID-19 (principal); I42.0 Dilated cardiomyopathy; I48.20 Chronic atrial fibrillation, unspecified; N17.9 Acute kidney failure, unspecified; R53.1 Weakness; I45.5 Other specified heart block; R55 Syncope and collapse; Z79.01 Long term (current) use of anticoagulants; E11.22 Type 2 diabetes mellitus with diabetic chronic kidney disease; N18.9 Chronic kidney disease, unspecified; Z79.84 Long term (current) use of oral hypoglycemic drugs; N40.1 Benign prostatic hyperplasia with lower urinary tract symptoms; R33.8 Other retention of urine; I50.9 Heart failure, unspecified; Z91.81 History of falling
CPT/HCPCS: 0202U; 36415; 70450; 71045; 72125; 80053; 82009; 82550; 83690; 83735; 83880; 84484; 85025; 85610; 85730; 86140; 87150; 93005; 96365; 96375; 99284; 99285; A9270; G0378

== ENCOUNTER 2020-09-10 23:00 | Outpatient (CLI) | payer OTHER | END 2020-09-10 23:01 | disposition short-term general hospital (02) | LOC: EMS 23:00 | PROVIDERS: ATTEND Surgery | DX: R55 Syncope and collapse (principal) | CPT/HCPCS: A0425; A0426 ==